=== PATIENT | female | born 1970 | race Caucasian/White ===

== ENCOUNTER 2018-01-22 04:52 | Emergency (ER) | payer BC, SELFPAY ==
[2018-01-22 04:53] VITALS: BP 142/94; PULSE 98; RESP 15; O2SAT 98; BMI 26.0
[2018-01-22] MEDS: Morphine 4 MG/ML Syringe IM (05:35)
[2018-01-22] MEDS: Ketorolac 60 MG/2 ML Vial IM (05:42)
[2018-01-22] MEDS: Orphenadrine 60 MG/2 ML Ampul IM (05:42)
--- NOTE | 2018-01-22 06:15 | RAD_ITS ---
STUDY: X-RAY - LUMBAR SPINE REASON FOR EXAM: Female, 47 years old. Low back pain for one year. TECHNIQUE: 3 view(s) of the lumbar spine were obtained. COMPARISON: None FINDINGS: Normal lumbar lordosis. There is no substantial scoliosis. There is a normal alignment of the vertebrae. Normal vertebral bodies and endplates. There are degenerative changes at L5-S1. The soft tissue structures are unremarkable. RAD/Lumbar Spine 2 or 3 Views IMPRESSION: Degenerative disc disease at L5-S1. Electronically Signed: Beth Butt MD at 6:39 EDT , Service support ,
--- NOTE | 2018-01-22 06:20 | ED.DCSUM_ITS ---
- ER Visit Summary Date of Service: 01/22/18 Chief Complaint: Low back pain History of Present Illness: The patient is a 47 F with bilateral low back pain. Patient has been dealing with this for some time, but it was worse this morning. The patient recently helped her mother move. She has seen a chiropractor. She has tried Advil and Epsom soaks. Nothing seems to help. Worse with moving and rolling. No bowel or bladder changes. No weakness or numbness. No abdominal pain or GI symptoms. No symptoms. Physical Examination: Afebrile and vital signs unremarkable. Patient alert and oriented. Appears uncomfortable but not toxic or in distress. Bilateral lower lumbar tenderness noted. Inspection normal. Spine nontender. Straight leg raise negative. Neurovascular intact distally both legs. Skin appears normal. Test Results: Lumbar x-rays pending. Emergency Department Course and Treatment: Patient treated with morphine, Toradol, and Norflex while awaiting results. X-rays show degenerative changes. Patient has modest improvement after pain medicine. Will attempt outpatient care and follow-up. She will be given a prescription for naproxen and Flexeril. Call for follow-up with primary care. Return for any new or worsening issues. Treatment Plan: As above Disposition: Discharge Impression: 1. Lumbar back pain This note was generated with [employer] dictation software. It may contain incorrect words, spelling, and punctuation that were not noted in review of the chart prior to signing ED Disposition - Plan for ED Patient: Chief Complaint: Back Referrals: Alex Bonilla [Primary Care Provider] -
--- NOTE | 2018-01-22 07:12 | ED.DEP ---
ED Disposition - Plan for ED Patient: Chief Complaint: Back Instructions: ED Spasm Back No Trauma Prescriptions: Naproxen [Naprosyn] 500 mg PO BID PRN #20 tab Cyclobenzaprine [Flexeril] 10 mg PO TID PRN #20 tab PRN Reason: Muscle Spasm Referrals: Alex Bonilla [Primary Care Provider] -
[2018-01-22 07:39] VITALS: BP 125/70; PULSE 74; RESP 16; O2SAT 97
== END 2018-01-22 07:47 | disposition home or self-care (01) ==
LOC: ED 06:05
PROVIDERS: Emergency Provider Emergency Medicine; Family Provider Family Medicine; PCP Family Medicine
DX: M54.5 Low back pain (principal); F17.200 Nicotine dependence, unspecified, uncomplicated
CPT/HCPCS: 72100; 99282

== ENCOUNTER 2018-02-14 07:49 | Day surgery (SDC) | payer BC, SELFPAY ==
[2018-02-14 08:08] VITALS: BP 122/82; PULSE 83; RESP 14; TEMP 36.5; O2SAT 97; BMI 26.2
--- NOTE | 2018-02-14 09:07 | PCM.OPRPT ---
Problem List (1) Personal history of colonic polyps Status: Acute (2) Irritable bowel syndrome with both constipation and diarrhea Status: Acute Report of Operation Date of Procedure: 02/14/18 Pre-Operative Diagnosis: Z86.010 history of colon polyps. K 58.2 irritable bowel syndrome with both constipation and diarrhea. Post-Operative Diagnosis: Same Surgery/Procedure Performed:: [id number] colonoscopy Type of Anesthesia:: MAC Anesthesiologist: Neal Rodríguez Description of Procedure: Patient was brought into the endoscopy suite. Placed in the left lateral decubitus position. Was given graded anesthesia. Colonoscope was inserted into the rectum. It was directed through the sigmoid colon, descending colon, transverse colon, ascending colon, to the cecum without difficulty. Operative findings: 1. Cecum: Normal appearance no mass lesions normal ileocecal valve. 2. Ascending colon: Normal appearance no mass lesions. 3. Transverse colon: Normal appearance no mass lesions. 4. Descending colon: Normal appearance no mass lesions. 5. Sigmoid colon: Normal appearance moderate amount of diverticular disease was identified no mass lesions. 6. Rectum: Normal appearance no mass lesions retroflexion showed some in internal hemorrhoids scope was withdrawn digital rectal exam was performed showing no masses within the anus. Patient will need to have another colonoscopy in 10 years. The mucosa throughout the colon looked entirely normal. There were no abnormalities seen anywhere. - Admit VTE Documentation VTE Present on Admission: No VTE Mechan Device Prophylaxis: None VTE Pharm Prophylaxis ordered?: No Reason prophylaxis not ordered:: Treatment Not Indicated
[2018-02-14 09:12] VITALS: BP 106/65; BP 122/82; PULSE 79; RESP 16; TEMP 36.9; O2SAT 97
[2018-02-14 09:15] VITALS: BP 107/64; BP 122/82; PULSE 76; RESP 16; O2SAT 97
[2018-02-14 09:20] VITALS: BP 112/69; BP 122/82; PULSE 71; RESP 16; O2SAT 97
[2018-02-14 09:27] VITALS: BP 115/69; BP 122/82; PULSE 75; RESP 16; TEMP 36.8; O2SAT 96
[2018-02-14 09:52] VITALS: BP 122/82
== END 2018-02-14 09:52 | disposition home or self-care (01) ==
LOC: EN 07:51 → AC 07:55
PROVIDERS: Family Provider Family Medicine; PCP Family Medicine; Visit Provider Surgery
PROC: 0DJD8ZZ Inspection of Lower Intestinal Tract, Via Natural or Artificial Opening Endoscopic (ICD-10-PCS; CPT 45378; principal; 2018-02-14 08:55)
DX: K58.2 Mixed irritable bowel syndrome (principal); Z86.010 Personal history of colon polyps; K64.8 Other hemorrhoids; M54.9 Dorsalgia, unspecified; G89.29 Other chronic pain; F17.200 Nicotine dependence, unspecified, uncomplicated
CPT/HCPCS: 45378; J7120

== ENCOUNTER 2018-11-30 10:02 | Emergency (ER) | payer BC, SELFPAY ==
[2018-11-30 10:04] VITALS: BP 156/88; PULSE 107; RESP 18; TEMP 37.1; O2SAT 96; BMI 27.2
--- NOTE | 2018-11-30 10:31 | CT_ITS ---
STUDY: CT ABDOMEN AND PELVIS WITH CONTRAST REASON FOR EXAM: Female, 48 years old. Pain. Bloody stool. RADIATION DOSAGE (If Supplied By Facility): CTDIvol = ( 15.71 ) mGy, DLP = ( 1002.49 ) mGycm TECHNIQUE: Transaxial images were obtained from the dome of the diaphragm to the symphysis pubis with oral contrast. Isovue 300 100ml IV/Oral was administered. Sagittal and coronal images were reconstructed. Individualized dose optimization techniques were used for this CT. COMPARISON: None. FINDINGS: The visualized lung bases are unremarkable. The visualized portions of the heart are within normal limits. There is hepatomegaly with diffuse hepatic enlargement. There is non-visualization of the gallbladder, which may be secondary to either contraction or a prior cholecystectomy. Normal spleen. Normal pancreas. Normal bilateral adrenal glands. Normal right kidney. There is 1.0 cm cyst of the left kidney. There is no hydronephrosis. Normal visualized stomach. Normal small intestine. Normal colon. The appendix is visualized and appears normal. There is mild atherosclerotic calcification of the abdominal aorta, without a demonstrated aneurysm. Normal inferior vena cava. Normal retroperitoneum. Normal urinary bladder. There is absence of the uterus consistent with a prior hysterectomy. There is no free fluid in the abdomen or pelvis. Normal abdominal wall. Normal osseous structures. CT/Abdomen/Pelvis WITH Contrast IMPRESSION: No dominant mass or obstruction Hepatomegaly. Electronically Signed: Ankush Roberson MD at 12:37 EDT , Service support ,
--- NOTE | 2018-11-30 10:32 | ED.VISSUMM ---
- ER Visit Summary Date of Service: 11/30/18 Chief Complaint: Blood per rectum History of Present Illness: The patient is a 48 F who presents for episode of bloody stool this morning. Patient states that she had a small amount of mucus and bright red blood in the toilet when she used the bathroom. There was no actual stool. Patient's last bowel movement was 3 days ago, and she normally has a bowel movement daily. She states she has had a lot of gurgling in her abdomen over the last few days. She is also having low back pressure. She states the low back pressure is not new. She denies any fever, nausea, vomiting, overt abdominal pain, or urinary symptoms. She had a colonoscopy 1 year ago and states she has a kink in her colon. Patient is not on any blood thinners. History of cholecystectomy and hysterectomy. She has rheumatoid arthritis. Physical Examination: Vital signs: afebrile, hemodynamically stable, no hypoxia on room air General: well nourished, well developed, in no distress Skin: warm, dry, no rash, no pallor HEENT: normocephalic and atraumatic; PERRL, EOMI, moist mucous membranes Cardiovascular: Tachycardic rate and rhythm without murmurs, no peripheral edema, 2+ pulses all distal extremities Respiratory: No increased work of breathing, lungs are clear to auscultation bilaterally, no rales, rhonchi or wheezing Abdominal: Abdomen is soft, mildly distended, diffuse mild tenderness with normoactive bowel sounds, no guarding or rebound, no masses, rectal exam shows no maria elena blood on stool, no masses appreciated, no anal fissures or bleeding hemorrhoids noted MSK: Moves all extremities, no deformities, normal strength Neuro: Awake and alert, oriented ?4. No facial droop, sensation and motor function intact and symmetric Test Results: Clinical Impression(s) from Imaging Studies Abdomen/Pelvis CT 11/30/18 10:31 IMPRESSION: No dominant mass or obstruction Hepatomegaly. Electronically Signed: Ankush Roberson MD at 12:37 EDT , Service support , Abnormal Lab Results 11/30/18 11/30/18 11/30/18 10:30 10:30 11:45 WBC 12.8 H RBC 5.05 Hgb 14.8 Hct 46.8 MCV 92.7 MCH 29.3 MCHC 31.6 L RDW 14.2 RDW Differential 47.6 H Plt Count 203 MPV 10.5 Immature Gran % (Auto) 0.200 Neut % (Auto) 54.8 Lymph % (Auto) 36.5 [place] % (Auto) 6.4 Eos % (Auto) 1.9 Baso % (Auto) 0.2 Absolute Neuts (auto) 7.0 Absolute Lymphs (auto) 4.66 H Total Counted Not Reportable Sodium 142 Potassium 3.7 Chloride 109 H Carbon Dioxide 27.0 Anion Gap 6 BUN 15 Creatinine 0.56 Estim Creat Clear Calc 119.47 Est GFR (MDRD) Af Amer 148 Est GFR (MDRD) Non-Af 122 BUN/Creatinine Ratio 26.7 H Glucose 93 Calcium 8.6 Total Bilirubin 0.20 AST 19 ALT 29 Alkaline Phosphatase 152 H Total Protein 7.0 Albumin 3.5 Globulin 3.5 Albumin/Globulin Ratio 1.0 Lipase 145 Urine Color Yellow Urine Clarity Clear Urine pH 6.0 Ur Specific [place] 1.015 Urine Protein Negative Urine Glucose (UA) Normal Urine Ketones Negative Urine Occult Blood Negative Urine Nitrite Negative Urine Bilirubin Negative Urine Urobilinogen Normal Ur Leukocyte Esterase Negative Urine RBC 0-5 SEEN Urine WBC 0 SEEN Ur Squamous Epith Cells 0 SEEN Urine Bacteria RARE Urine Mucus RARE Medications Given Discontinued Medications Sodium Chloride () 1,000 mls @ 1,000 mls/hr IV .Q1H ONE Stop: 11/30/18 11:30 Last Admin: 11/30/18 10:42 Dose: 1,000 mls/hr Ondansetron HCl (Zofran) 4 mg IV X1 ONE Stop: 11/30/18 10:32 Last Admin: 11/30/18 10:42 Dose: 4 mg Emergency Department Course and Treatment: Patient presents for an episode of mucus and blood from her bottom after having no bowel movement for a few days and feeling bloated. Patient does have history of abdominal surgeries, and bowel obstruction is on the differential. Patient was given IV fluids and Zofran. CT the abdomen and pelvis was performed and showed no evidence of obstruction or other acute process.. Patient's labs were remarkable only for mild leukocytosis of 12.8 without neutrophil predominance. Patient's labs were consistent with dehydration, and she did receive IV fluids. Patient was feeling well on reevaluation and had no further episodes of the blood from below. Patient is to follow-up with her doctor who has performed her colonoscopies in the past if she continues to have bleeding. We discussed return precautions. We also discussed a bowel regimen to help her with constipation. Patient was discharged home well-appearing and in no distress. Treatment Plan: [] Disposition: [] Impression: Bright red blood per rectum, constipation, mild dehydration This note was generated with [employer] dictation software. It may contain incorrect words, spelling, and punctuation that were not noted in review of the chart prior to signing ED Disposition - Plan for ED Patient: Disposition: Home or Assisted Living Instructions: ED Hematochezia Stable, ED Constipation Referrals: Mik Hung MD [Primary Care Provider] - Additional Instructions: If you continue to have bleeding, please follow-up with your doctor that performs her colonoscopies. If at any time you are having heavy bleeding from your bottom, severe abdominal or back pain, dizziness or lightheadedness, or you have any concerns, please return immediately to the emergency department for another evaluation. Please drink plenty of water to help prevent dehydration and also to help with constipation. You may add MiraLAX to your bowel regimen as well. If you have any worsening of your condition or any new concerning symptoms, please return immediately to the emergency department for another evaluation.
[2018-11-30] MEDS: Ondansetron 4 MG/2 ML Vial IV (10:42)
[2018-11-30] MEDS: 0.9% Normal Saline 1,000 ML 1000 ML IV (10:42)
[2018-11-30 10:49] LABS: Absolute Lymphocyte Count 4.66 X10^3/ul (0.83-4.51); Basophil# 0.02 X10^3/uL; Basophil% 0.2 % (0-1); Eosinophil# 0.24 X10^3/uL; Eosinophils% 1.9 % (0-5); Hematocrit 46.8 % (37-47); Hemoglobin 14.8 g/dl (12.0-15.0); Lymphocyte # 4.66 X10^3/ul (4.0); Lymphocyte % 36.5 % (19-41); Mean Corp Hgb Conc 31.6 g/gl (32-36); Mean Corpuscular Hgb 29.3 pg (27.0-32.0); Mean Corpuscular Volume 92.7 fL (81-99); Mean Platelet Vol. 10.5 fl (6.2-12.0); Monocyte# 0.82 X10^3/uL; Monocyte% 6.4 % (0-10); Neutrophil # 7.02 X10^3/uL (2.7-7.7); Neutrophil % 54.8 % (47-70); Platelet Count 203 K/mm3 (150-450); RBC Distribution Width CV 14.2 % (11.6-14.6); RBC Distribution Width SD 47.6 fl (35.1-43.9); Red Blood Count 5.05 M/mm3 (4.2-5.4); White Blood Count 12.8 K/mm3 (4.4-11.0)
[2018-11-30 10:53] LABS: POSITIVE COUNT NO; POSITIVE DIFFERENTIAL NO; POSITIVE MORPHOLOGY NO
[2018-11-30 11:00] LABS: AST(SGOT) 19 U/L (15-37); Alanine Aminotransfer ALT/SGPT 29 U/L (13-56); Albumin, Serum 3.5 g/dL (3.2-5.0); Alkaline Phosphatase 152 U/L (45-117); Anion Gap 6 (5-15); BUN 15 mg/dL (7-18); BUN/Creat Ratio 26.7 RATIO (10-20); Calcium,Total 8.6 mg/dL (8.5-10.1); Chloride 109 mmol/L (98-107); Creatinine, Serum 0.56 mg/dL (0.55-1.02); EST Glomerular Filtration Rate 122 mL/min (>60); Est Glom Filt Rate - Afr Amer 148 mL/min (>60); Estimated Creatinine Clearance 119.47 ml/min; Globulin 3.5 g/dL (2.2-4.2); Glucose 93 mg/dL (74-106); Lipase 145 U/L (73-393); Potassium 3.7 mmol/L (3.5-5.1); Sodium Level 142 mmol/L (136-145)
[2018-11-30 11:50] LABS: Squamous Epithelial Cells - UA 0 SEEN /hpf (5-10); White Blood Cells 0 SEEN /hpf (0-5)
[2018-11-30 11:55] LABS: Color, Urine Yellow (Yellow); Glucose, Dipstick Normal (Normal); Ketone-Dipstick Negative (Negative); Leukocyte Esterase-Dipstick Negative /ul (Negative); Nitrite-Dipstick Negative (Negative); Occult Blood-Urine Negative /ul (Negative); Protein-Dipstick Negative (Negative); Specific Gravity, Urine 1.015 (1.002-1.030); Urine Bilirubin Dipstick Negative (Negative); Urine Clarity Clear (Clear); Urine Urobilinogen Normal (Normal)
[2018-11-30 12:01] LABS: Red Blood Cells-Urine 0-5 SEEN /hpf (0-5)
[2018-11-30 12:02] LABS: Bacteria RARE /hpf (None Seen); Mucous, Urine RARE /hpf (<or=2+)
[2018-11-30 12:58] VITALS: BP 121/84; PULSE 78; RESP 18; O2SAT 94
== END 2018-11-30 13:10 | disposition home or self-care (01) ==
PROVIDERS: Emergency Provider Emergency Medicine; Family Provider Family Medicine; PCP Family Medicine
DX: K92.1 Melena (principal); K59.00 Constipation, unspecified; E86.0 Dehydration; M06.9 Rheumatoid arthritis, unspecified; Z90.710 Acquired absence of both cervix and uterus; Z90.49 Acquired absence of other specified parts of digestive tract; Z72.0 Tobacco use
CPT/HCPCS: 74177; 80053; 81001; 82274; 83690; 85025; 96361; 96374; 99283; J7030; Q9967; A4216; J2405

== ENCOUNTER 2019-03-05 09:41 | Observation (INO) | payer BC, SELFPAY ==
[2019-03-05] VITALS (15 sets, daily range): BP systolic 111–145; BP diastolic 60–91; PULSE 74–124; RESP 16–18; TEMP 36.4–37.2; O2SAT 94–98; BMI 26.2
--- NOTE | 2019-03-05 09:54 | RAD_ITS ---
STUDY: X-RAY CHEST REASON FOR EXAM: Female, 48 years old. Right facial numbness. TECHNIQUE: Single AP portable view of the chest. COMPARISON: None. FINDINGS: EKG electrodes are seen. Minimal increased linear markings at the lung bases suggestive of a linear bibasilar atelectasis. There is no demonstrated pleural abnormality. Normal size heart. Normal mediastinum and rose. Normal visualized pulmonary arteries. Normal visualized aortic arch and descending thoracic aorta. Normal visualized thoracic spine. Normal visualized ribs, clavicles, and shoulders. There is no demonstrated abnormality of the visualized soft tissue structures of the upper abdomen. RAD/Chest 1 View IMPRESSION: Minimal increased linear markings at the lung bases suggestive of linear atelectasis. Electronically Signed: Kings Smith, at 11:12 EDT , Service support ,
--- NOTE | 2019-03-05 09:54 | CT_ITS ---
STUDY: CTA OF THE BRAIN REASON FOR EXAM: Female, 48 years old. Right facial paresthesias. RADIATION DOSAGE (If Supplied By Facility): CTDIvol = ( 26.57 ) mGy, DLP = ( 1436.88 ) mGycm TECHNIQUE: CT angiography was performed with a multi-detector CT scanner. Data acquisition was obtained from the skull base through the vertex following intravenous administration of 100ml IV Isovue 370. MIP images were reconstructed from the axial data set. Post-processing of the angiographic images was performed, with multiplanar reformation and 3D reconstruction. Individualized dose optimization techniques were used for this CT. COMPARISON: None. FINDINGS: Normal bilateral petrous carotid arteries. Normal right cavernous carotid artery with a normal supraclinoid bifurcation. Normal left cavernous carotid artery with a normal supraclinoid bifurcation. Normal right A1 segments of the anterior cerebral artery. Normal left A1 segments of the anterior cerebral artery. Normal intact anterior communicating artery (ACOM). Normal bilateral A2 segments of the anterior cerebral arteries. Normal right M1 and M2 segments of the middle cerebral arteries, with a normal M1 bifurcation. Normal left M1 and M2 segments of the middle cerebral arteries, with a normal M1 bifurcation. Normal right posterior communicating artery (PCOM). Normal left posterior communicating artery (PCOM). Normal bilateral vertebral arteries. Normal basilar artery with a normal basilar bifurcation. The visualized bilateral superior cerebellar (SCA) arteries are normal. Normal bilateral P1, P2 and visualized P3 segments of the posterior cerebral arteries. There is no demonstrated aneurysm of the [place]. There is no demonstrated abnormality of the visualized brain. CT/CTA Head W/WO Contrast IMPRESSION: Normal [place] without a demonstrated aneurysm or hemodynamically significant stenosis. Electronically Signed: Kings mSith, at 11:08 EDT , Service support ,
--- NOTE | 2019-03-05 09:54 | CT_ITS ---
STUDY: CTA NECK WITH CONTRAST REASON FOR EXAM: Female, 48 years old. Right facial paresthesias. RADIATION DOSAGE (If Supplied By Facility): CTDIvol = ( 26.57 ) mGy, DLP = ( 1436.88 ) mGycm TECHNIQUE: CT angiography with multi-detector data acquisition was performed from the aortic arch to the skull base following intravenous administration of 100ml IV Isovue 370. MIP images were reconstructed from the axial data set. Post-processing of the angiographic images was performed, with multiplanar reformation and 3D reconstruction. Individualized dose optimization techniques were used for this CT. COMPARISON: None. FINDINGS: AORTIC ARCH: Normal visualized aortic arch. Normal origins of the brachiocephalic, left common carotid, and left subclavian arteries. RIGHT CAROTID ARTERIES: Normal right common carotid artery (CCA). Normal right common carotid bulb. Normal origin of the right internal carotid (ICA) artery without a hemodynamically significant stenosis. Normal visualized cervical portion of the right internal carotid artery. Normal origin of the right external carotid artery (ECA). LEFT CAROTID ARTERIES: Normal left common carotid artery (CCA). Normal left common carotid bulb. Normal origin of the left internal carotid (ICA) artery without a hemodynamically significant stenosis. Normal visualized cervical portion of the left internal carotid artery. Normal origin of the left external carotid artery (ECA). VERTEBRAL ARTERIES: There is enhancement within the bilateral vertebral arteries with a small right vertebral artery, and a dominant left vertebral artery. CT/CTA Neck W/WO Contrast IMPRESSION: Normal bilateral cervical carotid and vertebral arteries. Electronically Signed: Kings Smith, at 11:10 EDT , Service support ,
--- NOTE | 2019-03-05 09:54 | EKG12_ITS ---
Test Reason : OTHER PAIN Blood Pressure : / mmHG Vent. Rate : 107 BPM Atrial Rate : 107 BPM P-R Int : 162 ms QRS Dur : 072 ms QT Int : 340 ms P-R-T Axes : 056 006 021 degrees QTc Int : 453 ms Sinus tachycardia Possible Left atrial enlargement Borderline ECG Confirmed by ANNA GOVEA ([id number]), story editor BRANDY ZAYAS ([id number]) on 03/11/2019 10:26:16 AM Referred By: Nile Calles Confirmed By:ANNA GOVEA
[2019-03-05 10:18] LABS: Absolute Lymphocyte Count 4.22 X10^3/ul (0.83-4.51); Absolute Neutrophil Count 9.3 X10^3/uL (2.0-7.7); Basophil# 0.03 X10^3/uL; Basophil% 0.2 % (0-1); Eosinophil# 0.17 X10^3/uL; Eosinophils% 1.1 % (0-5); Hematocrit 47.6 % (37-47); Hemoglobin 15.8 g/dl (12.0-15.0); Lymphocyte # 4.22 X10^3/ul (4.0); Lymphocyte % 28.5 % (19-41); Mean Corp Hgb Conc 33.2 g/gl (32-36); Mean Corpuscular Hgb 30.4 pg (27.0-32.0); Mean Corpuscular Volume 91.5 fL (81-99); Mean Platelet Vol. 10.1 fl (6.2-12.0); Monocyte% 7.4 % (0-10); Neutrophil # 9.28 X10^3/uL (2.7-7.7); Neutrophil % 62.6 % (47-70); Platelet Count 203 K/mm3 (150-450); RBC Distribution Width CV 13.9 % (11.6-14.6); RBC Distribution Width SD 46.4 fl (35.1-43.9); White Blood Count 14.8 K/mm3 (4.4-11.0)
[2019-03-05 10:22] LABS: POSITIVE COUNT NO; POSITIVE DIFFERENTIAL NO; POSITIVE MORPHOLOGY NO
[2019-03-05] MEDS: 0.9% Normal Saline 1,000 ML 100 ML IV ×2 (10:25→13:05)
[2019-03-05 10:34] LABS: Anion Gap 6 (5-15); BUN 14 mg/dL (7-18); BUN/Creat Ratio 22.5 RATIO (10-20); Calcium,Total 8.8 mg/dL (8.5-10.1); Chloride 106 mmol/L (98-107); Creatinine, Serum 0.62 mg/dL (0.55-1.02); EST Glomerular Filtration Rate 108 mL/min (>60); Est Glom Filt Rate - Afr Amer 131 mL/min (>60); Estimated Creatinine Clearance 107.91 ml/min; Glucose 101 mg/dL (74-106); Partial Thromboplast Time 33.9 Seconds (24.1-36.2); Potassium 3.8 mmol/L (3.5-5.1); Prothrombin Time (Protime)PT. 12.9 SECONDS (11.7-14.9); Sodium Level 139 mmol/L (136-145)
--- NOTE | 2019-03-05 10:44 | ED.VISSUMM ---
- ER Visit Summary Date of Service: 03/05/19 Chief Complaint: [Numbness to the right side of face] History of Present Illness: The patient is a 48 F [resents to the emergency department with symptoms that started about an hour ago. 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 She noticed about an hour ago that the right side of her face became numb. She denies any vision changes or difficulty speaking. She denies any weakness in the extremities. She denies headache. She denies head injury. Patient denies recent illness. She denies any chest pain currently although she is had some intermittent discomfort over the last several days. Patient also complains of exertional dyspnea that is been ongoing for some time. Patient states that she has a brother in his 40s and he has had 3 strokes. Patient has history of high cholesterol is a smoker. Patient is on hormone replacement as she is had prior hysterectomy.] Physical Examination: [HEENT-PERRLA, EOMI. Cranial nerves II through XII grossly intact. TMs clear. Mucous membranes moist. No adenopathy. Cardiovascular-regular rate and rhythm without murmur or ectopy Lungs-clear to auscultation, chest wall stable without crepitus or subcu emphysema Abdomen-normoactive bowel sounds, soft, nontender, no rebound or rigidity, no peritoneal signs. Neuro [id number] and heel pulido testing within normal limits, negative Romberg, negative , Fundi benign. NIH stroke scale was a 1 given for paresthesias to the right side of the face. Extremities-intact ?4, normal range of motion, normal pulses, atraumatic] Test Results: [EKG obtained arrival shows sinus tachycardia with a ventricular rate of 107 bpm. CBC with additional count 14.8, hemoglobin 15.8, hematocrit 48, platelets 203. Troponin was less than 0.015] CTA of the brain and neck were normal. Chest x-ray was normal. Emergency Department Course and Treatment: [Patient case was discussed with neurology and at this point will recommend admission for further work-up of her paresthesias to the right side of her face.] Treatment Plan: [Admit] Disposition: [Admit] Impression: [Paresthesias right face-rule out stroke versus TIA versus other etiology] This note was generated with [employer] software. It may contain incorrect words, spelling, and punctuation that were not noted in review of the chart prior to signing ED Disposition - Plan for ED Patient: Referrals: Mik Hung MD [Primary Care Provider] -
[2019-03-05 11:01] LABS: Bedside Glucose 78 mg/dL (70-110)
--- NOTE | 2019-03-05 11:48 | NURSING ---
DR ALMIEDA FOR DR BOBBY
--- NOTE | 2019-03-05 11:55 | NURSING ---
PCU OBS ASHELFAH PARAESTHESIAS RT FACE, R/O CVA
--- NOTE | 2019-03-05 12:43 | ECHOD_ITS ---
Reason For Study: TIA/CVA Procedure This was a 2D Doppler, Color Flow transthoracic echocardiogram. Exam performed portable in patient room. Left Ventricle Normal size and thickness. The estimated ejection fraction is 65 %. Normal diastology for age. No regional wall motion abnormalities noted. Right Ventricle Normal size and thickness. Normal systolic function. Atria Normal left atrium. Normal right atrium. Normal atrial septum. Bubble contrast study negative for right to left interatrial shunt. Mitral Valve The mitral valve is structurally normal. No prolapse or stenosis seen. Trivial mitral valve insufficiency. Tricuspid Valve Normal tricuspid valve. Trivial tricuspid valve insufficiency. Right ventricular systolic pressure estimated to be 22 mmHg. Aortic Valve Normal aortic valve. Trisinus/trileaflet aortic valve. Pulmonic Valve Normal pulmonic valve. Trivial pulmonic valve insufficiency. Great Vessels Normal aortic root. Normal arch. Normal inferior vena cava. Inferior vena cava collapse with sniff. Pericardium/Pleural No pericardial effusion. Medication Performed a rapid injection of agitated mix of 9 cc saline and 1cc air to assess for atrial septal defect. MMode/2D Measurements & Calculations LVIDd: 4.5 cm IVSd: 0.92 cm Ao root diam: 3.4 cm LVIDs: 3.3 cm LVPWd: 0.88 cm RVDd: 3.2 cm FS: 27.7 % LAV(MOD-bp): 47.3 ml LA A4 area: 16.5 cm2 LA dimension(2D): 3.2 cm LAV(MOD-bp) Indexed: 25.3 ml/m2 LAV(MOD-sp2): 46.9 ml LAV(MOD-sp4): 46.8 ml RA A4 area: 14.4 cm2 Time Measurements MV dec time: 0.25 sec Doppler Measurements & Calculations MV E max kunal: 64.1 cm/sec Lat Peak E' Kunal: 7.7 cm/sec Med Peak E' Kunal: 8.8 cm/sec MV A max kunal: 60.5 cm/sec E/E' lat: 8.3 E/E' med: 7.3 MV E/A: 1.1 Ao V2 max: 92.2 cm/sec LV V1 max: 78.1 cm/sec PA V2 max: 92.4 cm/sec Ao max P.4 mmHg LV V1 max P.4 mmHg PI dec slope: 233.1 cm/sec2 Interpretation Summary The estimated ejection fraction is 65 %. Normal diastology for age. Bubble contrast study negative for right to left interatrial shunt. Trivial mitral valve insufficiency. Trivial tricuspid valve insufficiency. Right ventricular systolic pressure estimated to be 22 mmHg. There is no comparison study available. Ordering Physician: Nile Calles Referring Physician: NO PCP Performed By: Lidya Lew, MURIEL, RVT
--- NOTE | 2019-03-05 12:43 | MRI_ITS ---
STUDY: MRI BRAIN WITHOUT CONTRAST REASON FOR EXAM: Female, 48 years old. Right facial numbness, tingling possible stroke TECHNIQUE: Standardized multiplanar fat and water weighted pulse sequences were obtained. COMPARISON: None. FINDINGS: Normal size of the ventricles and extra-axial spaces for the patient's age. Normal white matter tracts of the supratentorial brain. The diffusion-weighted sequence is normal. Normal bilateral basal ganglia. Normal thalami. There is no extra-axial fluid accumulation. Normal flow voids within the major intracranial circulation suggesting patency by spin echo criteria. Normal sella turcica, pituitary gland, infundibular stalk, optic chiasm and hypothalamus. Normal tectal plate and pineal gland. Normal midbrain, annetta and medulla. Normal cerebellum. Normal basal cisterns. Normal bilateral temporal bones. Normal bilateral internal auditory canals. No demonstrated orbital abnormality, within the constraints of a routine brain study. Normal visualized paranasal sinuses. Normal calvarium and skull base. Normal visualized soft tissue structures. Normal visualized upper cervical spine. MRI/Brain without Contrast IMPRESSION: Normal unenhanced MRI of the brain. No MRI evidence for acute stroke. The diffusion weighted sequence is normal. Electronically Signed: Wilmer Lopez, at 22:01 EDT Tel , Service support ,
--- NOTE | 2019-03-05 12:55 | PCM.HP.STD ---
Problem List (1) Hemorrhoids Status: Chronic (2) Rheumatoid arthritis Status: Chronic (3) Tobacco abuse Status: Chronic (4) Chronic back pain Status: Chronic History of Present Illness Date of Admission: 03/05/19 Chief Complaint: Right face numbness and tingling. The patient is a 48 year old F with past medical history as mentioned above presented to the emergency room because of right facial numbness and tingling. 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 Shortly after, she started having numbness and tingling on the right side of her face, involving the right cheek and mandible, associated with mild dizziness, continued up to this time, no aggravating or relieving factors and no associated symptoms. She denied associated blurred vision or any changes in her vision, denied slurred speech, focal arm or leg weakness. She denied headache. She denied chest pain or shortness of breath. She mentioned that she had a brother who is in his 40s and he had 3 strokes. She has history of hyperlipidemia and her PCP has been managing it with diet control but she is not on statins. She has history of hysterectomy and she has been on hormonal replacement. In the emergency department, her vital signs were stable. Her NIH stroke scale was 1. She has no other focal deficit on physical examination. Routine blood work was remarkable for leukocytosis which is chronic, otherwise normal. EKG revealed normal sinus rhythm, normal MO interval, normal QRS, no acute ischemic changes. Troponin was negative. Chest x-ray showed no acute findings. CTA of the head and neck showed no acute infarction or hemorrhage, no evidence of hemodynamically significant vascular disease or stenosis. She is being admitted for right facial paresthesia/probable TIA for evaluation. Past Medical History Past Medical History (Chronic Problems): Chronic Problems (Last Updated 03/05/19 @ 12:54 by Nile Calles MD) Personal history of colonic polyps (Chronic) Hemorrhoids (Chronic) Acid reflux (Chronic) Heart murmur (Chronic) Rheumatoid arthritis (Chronic) Tobacco abuse (Chronic) Chronic back pain (Chronic) Medical History: Medical History (Last Updated 03/05/19 @ 12:54 by Nile Calles MD) Hemorrhoids (Chronic) K64.9 Acid reflux (Chronic) K21.9 Heart murmur (Chronic) R01.1 Rheumatoid arthritis (Chronic) M06.9 Tobacco abuse (Chronic) Z72.0 Chronic back pain (Chronic) M54.9, G89.29 Allergies No Known Allergies Allergy (Verified 03/05/19 09:43) Home Medications: Ambulatory Orders Medication Instructions Recorded Estradiol [Estrace] 1 mg PO DAILY 01/22/18 Lactobacillus acidophilus capsule 10 mg PO QDAY 02/08/18 multivitamin tablet 1 tab PO QDAY 02/08/18 omeprazole 20 mg capsule,delayed 20 mg PO QDAY 02/08/18 release Cholecalciferol (Vitamin D3) 1,200 units PO DAILY 11/30/18 [Vitamin D] DiphenhydrAMINE [Benadryl] 25 mg PO QHS 03/05/19 Surgical History: cholecystectomy, hysterectomy, tonsillectomy Psychiatric History: No pertinent psych hx 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 history Lives: Spouse/ Significant Other Smoking Status: Current every day smoker Tobacco Use: Cigarettes Alcohol: Rare Drugs: None - *Family History Maternal Family History: Family History (Last Reviewed 02/08/18 @ 09:41 by Mickey Prather MD) Father Arthritis Diabetes Heart disease Hypertension Cancer Thyroid disorder Thyroid cancer CAD (coronary artery disease) Mother Arthritis Diabetes Brother Hypertension CVA (cerebral vascular accident) History Items: - Sibling Family History: Family History (Last Reviewed 02/08/18 @ 09:41 by Mickey Prather MD) Father Arthritis Diabetes Heart disease Hypertension Cancer Thyroid disorder Thyroid cancer CAD (coronary artery disease) Mother Arthritis Diabetes Brother Hypertension CVA (cerebral vascular accident) History Items: Stroke Review of Systems Constitutional: Denies: Anorexia, Chills, Fever, Weakness Eyes: Denies: Blurred vision, Double vision, Drainage, Redness HEENT: Denies: Difficulty Hearing, Ear Pain, Eye Pain, Nasal Congestion, Sore Throat Cardiovascular: Reports: Light Headedness. Denies: Chest Pain, Chest Pressure, Chest Tightness, Heaviness, Palpitations, Paroxysmal Noc. Dyspnea, Syncope Respiratory: Denies: Cough, Hemoptysis, Pleuritic Pain, Shortness of Breath, Sputum production, Wheezing Gastrointestinal: Denies: Abdominal Pain, Constipation, Diarrhea, Nausea, Vomiting Genitourinary: Denies: Dysuria, Frequency, Hematuria Musculoskeletal: Denies: Arm Pain, Back Pain, Foot Pain Skin: Denies: Dryness, Rash Neurological: Reports: Numbness, Tingling. Denies: Balance problems, Blurred vision, Double vision, Change in Speech, Slurred speech, Confusion, Focal weakness, Headaches, Tremor, Seizures Psychiatric: Denies: Anxiety, Depression Endocrine: Denies: Change in Body Habitus, Polyuria VTE Information - Inpt Only VTE Present on Admission: No VTE Mechan Device Prophylaxis: None VTE Pharm Prophylaxis ordered?: No - Physical Exam General: Alert, Oriented x3, Cooperative, No apparent distress HEENT: Atraumatic, PERRLA, EOMI, Normocephalic Oral: Moist Mucosa, No Gingival or Mucosal Lesions/ Ulcerations Neck: Supple, No JVD, Negative Carotid Bruits, Trachea Midline, Thyroid Normal Size and Texture Lungs: Clear to auscultation, Normal air movement, No rhonchi, No wheeze, No rales Cardiovascular: Regular rate, Regular Rhythm, Normal S1, Normal S2, PMI Normal Abdomen: Bowel Sounds Present, Soft, Non Tender, Non-Distended, No Hepato-splenomegaly Extremities: No clubbing, No cyanosis, No edema Skin: No rashes, No breakdown Lymphatic: No Cervical, Supraclavicular, or Inguinal Adenopathy Neurological: Cranial nerves II-XII grossly intact, Motor Exam 5/5 strength throughout Psych/Mental Status: Normal Affect, Appropriate, Alert and oriented to time, place, person, mood and affect Vital Signs Temp Pulse Resp BP Pulse Ox 98.9 F 88 18 116/67 98 03/05/19 09:41 03/05/19 12:34 03/05/19 12:34 03/05/19 12:34 03/05/19 12:34 Oxygen Delivery Method Room Air Weight: 167 lb Body Mass Index (BMI) 26.2 Finger Stick Blood Glucose 78 Laboratory Tests Past 24 Hrs 03/05/19 03/05/19 03/05/19 10:04 10:04 10:04 WBC 14.8 H RBC 5.20 Hgb 15.8 H Hct 47.6 H MCV 91.5 MCH 30.4 MCHC 33.2 RDW 13.9 RDW Differential 46.4 H Plt Count 203 MPV 10.1 Immature Gran % (Auto) 0.200 Neut % (Auto) 62.6 Lymph % (Auto) 28.5 [place] % (Auto) 7.4 Eos % (Auto) 1.1 Baso % (Auto) 0.2 Absolute Neuts (auto) 9.3 H Absolute Lymphs (auto) 4.22 Total Counted Not Reportable PT 12.9 INR 1.0 APTT 33.9 Sodium 139 Potassium 3.8 Chloride 106 Carbon Dioxide 27.0 Anion Gap 6 BUN 14 Creatinine 0.62 Estim Creat Clear Calc 107.91 Est GFR (MDRD) Af Amer 131 Est GFR (MDRD) Non-Af 108 BUN/Creatinine Ratio 22.5 H Glucose 101 Calcium 8.8 Troponin I < 0.015 POC Glucose 03/05/19 10:53 POC Glucose 78 Clinical Impression(s) from Imaging Studies Chest X-Ray 03/05/19 09:54 IMPRESSION: Minimal increased linear markings at the lung bases suggestive of linear atelectasis. Electronically Signed: Kings Smith, at 11:12 EDT , Service support , Head CTA 03/05/19 09:54 IMPRESSION: Normal [place] without a demonstrated aneurysm or hemodynamically significant stenosis. Electronically Signed: Kings Smith, at 11:08 EDT , Service support , Neck CTA 03/05/19 09:54 IMPRESSION: Normal bilateral cervical carotid and vertebral arteries. Electronically Signed: Kings Smith, at 11:10 EDT , Service support , Assessment/Plan This is a 48 years old female patient presented to the emergency room because of right facial paresthesia and she is being admitted for evaluation for probable TIA. #1 right facial paresthesia/probable TIA: She has no other focal deficit apart from right facial paresthesia. Risk factors are history of smoking, hyperlipidemia not on statins and history of stroke in the family, she has a brother who is in his 40s and he had 3 strokes. She is not a candidate for TPA. Her vital signs are stable, blood pressure under control. CTA of the head and neck were unremarkable. EKG revealed normal sinus rhythm, no acute ischemic changes or cardiac arrhythmias. Plan: Admit to PCU for observation, cardiac monitoring, NIH stroke scale, MRI brain, 2D echocardiogram, fasting lipid profile, start baby aspirin and Lipitor, PT OT evaluation and treatment. #2 hyperlipidemia: Not on treatment, it has been managed with diet controlled by PCP. Plan to do lipid profile tomorrow morning, start Lipitor as above. #3 rheumatoid arthritis: Stable, no complaints, she has been not on any treatment for it. #4 GERD: Continue PPI. #5 DVT prophylaxis: Low risk patient, no prophylaxis indicated. This note was generated with [employer] dictation software. It may contain incorrect words, spelling, and punctuation that were not noted in checking the note before signing. Code Visit OBSV E&M: 65588 Initial observation care L3
--- NOTE | 2019-03-05 22:21 | NURSING ---
pt off floor for testing, unable to complete NIH until pt returned.
[2019-03-05] MEDS: MELATONIN 10 MG TABLET PO (22:23)
[2019-03-05] MEDS: Atorvastatin Calcium 80 MG Tablet PO (22:23)
[2019-03-06 01:54] VITALS: BP 103/61; PULSE 74; RESP 16; TEMP 36.5; O2SAT 94
[2019-03-06 03:00] VITALS: PULSE 74
[2019-03-06 06:00] VITALS: BP 118/58; PULSE 74; RESP 16; TEMP 36.5; O2SAT 94
[2019-03-06 06:13] LABS: Absolute Lymphocyte Count 3.26 X10^3/ul (0.83-4.51); Absolute Neutrophil Count 4.7 X10^3/uL (2.0-7.7); Basophil# 0.02 X10^3/uL; Basophil% 0.2 % (0-1); Eosinophil# 0.27 X10^3/uL; Hemoglobin 15.4 g/dl (12.0-15.0); Lymphocyte # 3.26 X10^3/ul (4.0); Lymphocyte % 36.4 % (19-41); Mean Corp Hgb Conc 32.8 g/gl (32-36); Mean Corpuscular Hgb 29.6 pg (27.0-32.0); Mean Corpuscular Volume 90.4 fL (81-99); Mean Platelet Vol. 10.2 fl (6.2-12.0); Monocyte# 0.68 X10^3/uL; Monocyte% 7.6 % (0-10); Neutrophil # 4.72 X10^3/uL (2.7-7.7); Neutrophil % 52.7 % (47-70); Platelet Count 192 K/mm3 (150-450); RBC Distribution Width CV 14.2 % (11.6-14.6); RBC Distribution Width SD 46.7 fl (35.1-43.9)
[2019-03-06 06:16] LABS: POSITIVE COUNT NO; POSITIVE DIFFERENTIAL NO; POSITIVE MORPHOLOGY NO
[2019-03-06 06:27] VITALS: PULSE 72
[2019-03-06 06:43] LABS: Cholesterol 182 mg/dL (200); High Density Lipoprotein 32 mg/dL; Triglycerides 200 mg/dL; Very Low Density Lipoprotein 40 mg/dL (5-40)
[2019-03-06 06:58] VITALS: O2SAT 95
[2019-03-06 07:54] VITALS: BMI 26.2
--- NOTE | 2019-03-06 07:57 | DCINST_ITS ---
You will use the following diet at home:: Regular Your food should be the consistency of: Regular Discharge Activity: Return to Normal Activity Weight Bearing Status: Full weight bearing Call your doctor if you observe: Fever of 101 or Higher, Shortness of breath, Dizziness, Fainting spells, Chest pain, Increased palpitations (irregular heartbeat), Uncontrolled pain Allergies/Adverse Reactions: Allergies No Known Allergies Allergy (Verified 03/05/19 09:43) Medications to take at Discharge Estradiol [Estrace] 1 mg PO DAILY 01/22/18 Lactobacillus acidophilus capsule 10 mg PO QDAY 02/08/18 multivitamin tablet 1 tab PO QDAY 02/08/18 omeprazole 20 mg capsule,delayed release 20 mg PO QDAY 02/08/18 Cholecalciferol (Vitamin D3) [Vitamin D3] 1,200 units PO DAILY 11/30/18 DiphenhydrAMINE [Benadryl] 25 mg PO QHS 03/05/19 Primary Care Physician: Mik Hung MD [NON-STAFF] - Please follow up with your Primary Care Physician in: 1-2 weeks. Test Results: Test results from this visit will be discussed in further detail at your follow- up appointment, if applicable.
[2019-03-06] MEDS: Aspirin 81 MG TAB.CHEW PO (09:27)
[2019-03-06] MEDS: Pantoprazole Sodium 20 MG Tablet PO (09:27)
[2019-03-06 10:00] VITALS: BP 122/79; PULSE 71; RESP 16; TEMP 36.6; O2SAT 93
--- NOTE | 2019-03-06 14:17 | DS.PCM_ITS ---
Discharge Date and Diagnosis Date of Admission: 03/05/19 Date of Discharge: 03/06/19 - Primary Discharge Diagnosis Right facial paresthesia, TIA and stroke ruled out. - Secondary Discharge Diagnosis Chronic Problems (Last Updated 03/05/19 @ 12:54 by Nile Calles MD) Personal history of colonic polyps (Chronic) Hemorrhoids (Chronic) Acid reflux (Chronic) Heart murmur (Chronic) Rheumatoid arthritis (Chronic) Tobacco abuse (Chronic) Chronic back pain (Chronic) Hospital Course and Treatment Imaging Results: Clinical Impression(s) from Imaging Studies Chest X-Ray 03/05/19 09:54 IMPRESSION: Minimal increased linear markings at the lung bases suggestive of linear atelectasis. Electronically Signed: Kings Smith, at 11:12 EDT , Service support , Head CTA 03/05/19 09:54 IMPRESSION: Normal [place] without a demonstrated aneurysm or hemodynamically significant stenosis. Electronically Signed: Kings Smith, at 11:08 EDT , Service support , Neck CTA 03/05/19 09:54 IMPRESSION: Normal bilateral cervical carotid and vertebral arteries. Electronically Signed: Kings Smith, at 11:10 EDT , Service support , Brain MRI 03/05/19 12:43 IMPRESSION: Normal unenhanced MRI of the brain. No MRI evidence for acute stroke. The diffusion weighted sequence is normal. Electronically Signed: Wilmer Lopez, at 22:01 EDT Tel , Service support , Procedures: 2-D Echocardiogram, EKG Summary of Care Provided: Patient seen and examined on the day of discharge and appeared to be stable to be discharged home. Numbness and tingling on the right side of her face is improving. She denies any new symptoms. Her vital signs are stable. The patient is a 48 year old F admitted because of right facial paresthesia with concern of probable TIA versus acute stroke. Her risk factors were diet controlled hyperlipidemia and being on hormone replacement for hysterectomy. No history of diabetes, hypertension, heart disease. Initial CT scan brain showed no acute infarct or hemorrhage. CTA of the head and neck revealed no evidence of hemodynamically significant vascular disease or stenosis. EKG revealed normal sinus rhythm without evidence of acute ischemic changes or cardiac arrhythmias. Patient had no focal deficit on physical examination. She was treated with aspirin and Lipitor. Her vital signs were stable throughout admission. Symptoms of right facial paresthesia improved. There was no obvious etiology identified. MRI brain was done and showed no evidence of acute infarct or hemorrhage. 2D echocardiogram revealed ejection fraction of 65%, bubble contrast study that was negative for [id number] shunt, no significant valvular heart disease. Acute stroke ruled out. Lipid profile revealed total cholesterol of 182, LDL cholesterol of 110 and HDL cholesterol of 32 . Triglycerides were 200. Patient discharged home in a stable medical condition, continued on her previous home medication without any changes, recommended follow-up with PCP in 1 to 2 weeks. - Physical Exam General: Alert, Oriented x3, Cooperative, No apparent distress HEENT: Atraumatic, PERRLA, EOMI, Normocephalic Oral: Moist Mucosa, No Gingival or Mucosal Lesions/ Ulcerations Neck: Supple, No JVD, Negative Carotid Bruits, Trachea Midline, Thyroid Normal Size and Texture Lungs: Clear to auscultation, Normal air movement, No rhonchi, No wheeze, No rales Cardiovascular: Regular rate, Regular Rhythm, Normal S1, Normal S2, No murmurs Abdomen: Bowel Sounds Present, Soft, Non Tender, Non-Distended, No Hepato- splenomegaly Extremities: No clubbing, No cyanosis, No edema Skin: No rashes, No breakdown Lymphatic: No Cervical, Supraclavicular, or Inguinal Adenopathy Neurological: Cranial nerves II-XII grossly intact, Motor Exam 5/5 strength throughout Psych/Mental Status: Normal Affect, Appropriate Vital Signs Temp Pulse Resp BP Pulse Ox 97.8 F 71 16 122/79 H 93 03/06/19 10:00 03/06/19 10:00 03/06/19 10:00 03/06/19 10:03/06/19 10:00 Oxygen Delivery Method Room Air Weight: 167 lb Body Mass Index (BMI) 26.2 Finger Stick Blood Glucose 78 Intake and Output for Last 24 Hours 03/04/19 03/05/19 03/06/19 23:59 23:59 23:59 Intake Total 902 / 1108 1273 / 1273 Balance 902 / 1108 1273 / 1273 Laboratory Tests Past 24 Hrs 03/06/19 03/06/19 05:55 05:55 WBC 9.0 RBC 5.20 Hgb 15.4 H Hct 47.0 MCV 90.4 MCH 29.6 MCHC 32.8 RDW 14.2 RDW Differential 46.7 H Plt Count 192 MPV 10.2 Immature Gran % (Auto) 0.100 Neut % (Auto) 52.7 Lymph % (Auto) 36.4 [place] % (Auto) 7.6 Eos % (Auto) 3.0 Baso % (Auto) 0.2 Absolute Neuts (auto) 4.7 Absolute Lymphs (auto) 3.26 Total Counted Not Reportable Triglycerides 200 H Cholesterol 182 LDL Cholesterol 110 VLDL Cholesterol 40 HDL Cholesterol 32 L Discharge Activity: Return to Normal Activity Weight Bearing Status: Full weight bearing Call your doctor if you observe: Fever of 101 or Higher, Shortness of breath, Dizziness, Fainting spells, Chest pain, Increased palpitations (irregular heartbeat), Uncontrolled pain Home Medications: Medications to take at Discharge Estradiol [Estrace] 1 mg PO DAILY 01/22/18 Lactobacillus acidophilus capsule 10 mg PO QDAY 02/08/18 multivitamin tablet 1 tab PO QDAY 02/08/18 omeprazole 20 mg capsule,delayed release 20 mg PO QDAY 02/08/18 Cholecalciferol (Vitamin D3) [Vitamin D3] 1,200 units PO DAILY 11/30/18 DiphenhydrAMINE [Benadryl] 25 mg PO QHS 03/05/19 Primary Care Physician: Mik Hugn MD [NON-STAFF] - Please follow up with your Primary Care Physician in: 1-2 weeks. Disposition: Home Minutes spent on discharge:: 25 Patient Condition:: Stable Medical Necessity - Tobacco Use Smoking Status: Current every day smoker Tobacco Use: Cigarettes Meaningful Use Info Meaningful Use Diagnoses (Choose all that apply): None applicable Code Visit OBSV E&M: 57503 Observation care discharge
== END 2019-03-06 07:57 | disposition home or self-care (01) ==
LOC: ED 11:25 → PCU 12:24
PROVIDERS: Admitting Provider Hospitalist; Emergency Provider Emergency Medicine; Referring Provider Hospitalist; Visit Provider Hospitalist
DX: R20.2 Paresthesia of skin (principal); R06.00 Dyspnea, unspecified; R29.701 NIHSS score 1; M06.9 Rheumatoid arthritis, unspecified; E78.5 Hyperlipidemia, unspecified; K21.9 Gastro-esophageal reflux disease without esophagitis; Z79.899 Other long term (current) drug therapy; Z79.890 Hormone replacement therapy; F17.210 Nicotine dependence, cigarettes, uncomplicated
CPT/HCPCS: 36415; 70496; 70498; 70551; 71045; 80048; 80061; 82962; 84484; 85025; 85610; 85730; 93005; 93306; 96360; 96361; 97161; 99218; 99283; J7030; Q9967; A4216; G0378

== ENCOUNTER 2021-06-28 05:15 | Emergency (ER) | payer OTHER, SELFPAY ==
[2021-06-28 05:16] VITALS: BP 169/90; PULSE 105; RESP 16; TEMP 36.9; O2SAT 98; BMI 26.7
--- NOTE | 2021-06-28 05:55 | EDS_ITS ---
HPI History of Present Illness Chief Complaint: Back Informant: patient Narrative Narrative: Patient has exacerbation of back pain. She has had this off and on for years. She was here in 2016 with some back pain. She has had episodic pain. She is seeing a chiropractor off and on. She has been having pain now for 1 to 2 months. She states that she just jolted once recently. When she woke up the next morning her back was sore and is just never gotten better. She has had episodes where she has urinary leakage. But most of this is related to significant pain and is hard for her to get up and get to the bathroom in time. She does not have ongoing incontinence. She knows when she needs to go. No bowel incontinence. No saddle anesthesia. No pain or radicular symptoms at all. No fevers or chills. No acute trauma. She has had x-rays recently at chiropractor. No history of cancer. [facility] Medical History Acid reflux Chronic back pain Heart murmur Hemorrhoids Rheumatoid arthritis Tobacco abuse Home Medications estradiol 1 mg PO DAILY 01/22/18 [History Last Taken 03/05/19] Lactobacillus acidophilus 10 mg PO QDAY 02/08/18 [History Last Taken 03/05/19] multivitamin 1 tab PO QDAY 02/08/18 [History Last Taken 03/05/19] omeprazole 20 mg capsule,delayed release 20 mg PO QDAY 02/08/18 [History Last Taken 03/05/19] cholecalciferol (vitamin D3) 1,200 units PO DAILY 11/30/18 [History Last Taken 03/05/19] diphenhydramine HCl 25 mg PO QHS 03/05/19 [History Last Taken 03/04/19] prednisone 60 mg PO DAILY #15 tab 06/28/21 [Rx Last Taken Unknown] tramadol 50 mg PO Q6H PRN 3 Days #12 tab 06/28/21 [Rx Last Taken Unknown] Allergy/AdvReac Type Severity Reaction Status Date / Time No Known Allergies Allergy Verified 06/28/21 05:20 Family History Father Arthritis Diabetes Heart disease Hypertension Cancer Skin cancer Thyroid disorder Thyroid cancer CAD (coronary artery disease) Mother Arthritis Diabetes Brother Hypertension CVA (cerebral vascular accident) Social History Smoking Status: Current every day smoker tobacco type: cigarettes second hand exposure: Yes alcohol intake: never substance use type: does not use caffeine: Yes what type of physical activity do you participate in: none frequency: does not exercise seatbelt use: always ROS ROS ED Constitutional Constitutional ED: Denies chills or fever(s) ENT ENT ED: Denies rhinorrhea or sore throat Cardiovascular Cardiovascular: Denies palpitations Respiratory/Chest Respiratory/Chest: Denies dyspnea Gastrointestinal Gastrointestinal: Denies abdominal pain, constipation, diarrhea, melena, nausea or vomiting Genitourinary Genitourinary ED: Reports other Details: See history of present illness. ; Denies dysuria, hematuria or urinary frequency Musculoskeletal Musculoskeletal: Reports back pain; Denies neck pain Integumentary Denies rash Neurologic Neurologic: Denies headache(s) Psychiatric Psychiatric: Denies anxiety or depression Endocrine Endocrinology: Denies polydipsia or polyuria Hematologic/Lymphatic Hematologic/Lymphatic: Denies easy bleeding or easy bruising Allergic/Immunologic Allergic/Immunologic ED: Denies urticaria EXAM Physical Exam Const Vital Signs: 06/28/21 05:16 Temperature 98.4 F Temperature Source Oral Pulse Rate 105 H Respiratory Rate 16 Blood Pressure 169/90 H Blood Pressure Mean 116 Pulse Ox 98 Oxygen Delivery Method Room Air Positive well nourished and well developed General Appearance ED: well developed HEENT Reports moist mucous membranes Eyes General Eye ED: Negative for scleral icterus Neck No no JVD Resp normal respiratory effort and clear to auscultation bilaterally Auscultation: Negative for rales, rhonchi or wheezes Cardio regular rate GI normal to inspection, nondistended, normoactive bowel sounds Back/Spine normal to inspection and no thoracic nor lumbar tenderness Back/Spine Narrative: Patient's tenderness is actually down at the SI joint area. There is no erythema or skin changes. There is really no paraspinal lumbar tenderness. It is sore when she moves. Extremity normal to inspection General Extremety ED: Negative for edema or tenderness General Extremity: Negative for edema Neuro oriented x3 Neuro Narrative: Patient has 2+ bilateral patella and 2+ bilateral Achilles reflexes. She can press on toes and pull up. She can walk and stand. Quadricep strength is good. There is no sensory abnormality. Sensorium / Orientation: alert Skin no rashes or lesions noted MDM MDM MDM Narrative Medical decision making narrative: I am not finding any neurologic deficit on this patient. She has had her symptoms for 1 to 2 months. I think this is most closely sacroiliac pain. She tried some Naprosyn at home. I gave her a small amount of benefit. I did do online prescribing report that shows no narcotics and only one prescription for Flexeril. I do not think Flexeril will help works I doubt this is muscular. I will place her on a short course of prednisone. I will write for some tramadol as I think she has genuine discomfort. I discussed follow-up. We discussed reasons to return which are worsening pain, weakness numbness or continual bowel or bladder dysfunction. Discharge Plan Triage Chief Complaint: Back ED Provider: Yao Walker Dx/Rx/DC Orders Clinical Impression: Back pain, sacroiliac Instructions: ED Sacroiliitis Prescriptions: New prednisone 20 MG tablet 60 mg PO DAILY Qty: 15 RF: 0 tramadol 50 mg tablet 50 mg PO Q6H PRN (Reason: pain) 3 Days Qty: 12 RF: 0 No Action omeprazole 20 mg capsule,delayed release(DR/EC) 20 mg PO QDAY RF: 0 multivitamin tablet 1 tab PO QDAY RF: 0 Lactobacillus acidophilus [Acidophilus] capsule 10 mg PO QDAY RF: 0 estradiol 1 MG tablet 1 mg PO DAILY RF: 0 cholecalciferol (vitamin D3) 50,000 UNIT capsule 1,200 units PO DAILY RF: 0 diphenhydramine HCl 25 MG capsule 25 mg PO QHS RF: 0 Primary Care Provider: Mik Hung Referrals: Mik Hung MD [Primary Care Provider] - 3-5 Days if not improving Disposition Disposition: Home, Self Care
[2021-06-28] MEDS: predniSONE 20 MG Tablet 60 MG PO (06:07)
[2021-06-28] MEDS: Morphine 4 MG/ML Syringe IM (06:08)
== END 2021-06-28 06:36 | disposition home or self-care (01) ==
PROVIDERS: Emergency Provider Emergency Medicine; PCP Family Medicine
DX: M53.3 Sacrococcygeal disorders, not elsewhere classified (principal); F17.210 Nicotine dependence, cigarettes, uncomplicated; G89.29 Other chronic pain; K21.9 Gastro-esophageal reflux disease without esophagitis; M06.9 Rheumatoid arthritis, unspecified; Z79.52 Long term (current) use of systemic steroids
CPT/HCPCS: 96372; 99283

== ENCOUNTER 2021-07-03 04:54 | Emergency (ER) | payer OTHER, SELFPAY ==
[2021-07-03 04:55] VITALS: PULSE 117; RESP 18; TEMP 36.7; O2SAT 95; BMI 27.6
[2021-07-03 04:59] VITALS: BP 145/67
--- NOTE | 2021-07-03 05:09 | EX.ED.DYSGE1 ---
HPI History of Present Illness Chief Complaint: Back Detail of Chief Complaint: Back pressure and she will Informant: patient Onset/Context/Timing Onset: Days Context: Gradual Onset Narrative Narrative: Patient presents with worsened low back pain and chills. Patient was seen in the ER on the with acute on chronic low back pain. On examination at that time pain was across the SI joints bilaterally. Normal neuro exam was noted. Patient was given prescriptions for prednisone and tramadol. She states she has not been taking the tramadol because she was worried about the side effects. She states she had been feeling improved until this evening. She now reports chills and increased pressure in her low back. She does report urinary urgency. No fevers been noted. No cough or congestion. PFSH PFS Medical History Acid reflux Chronic back pain Heart murmur Hemorrhoids Rheumatoid arthritis Tobacco abuse Home Medications multivitamin 1 tab PO QDAY 02/08/18 [History Last Taken 03/05/19] omeprazole 20 mg capsule,delayed release 20 mg PO QDAY 02/08/18 [History Last Taken 03/05/19] cholecalciferol (vitamin D3) 1,200 units PO DAILY 11/30/18 [History Last Taken 03/05/19] diphenhydramine HCl 25 mg PO QHS 03/05/19 [History Last Taken 03/04/19] prednisone 60 mg PO DAILY #15 tab 06/28/21 [Rx Last Taken Unknown] tramadol 50 mg PO Q6H PRN 3 Days #12 tab 06/28/21 [Rx Last Taken Unknown] sulfamethoxazole-trimethoprim [Bactrim DS] 1 tab PO BID #20 tab 07/03/21 [Rx Last Taken Unknown] Allergy/AdvReac Type Severity Reaction Status Date / Time No Known Allergies Allergy Verified 07/03/21 04:55 Family History Father Arthritis Diabetes Heart disease Hypertension Cancer Skin cancer Thyroid disorder Thyroid cancer CAD (coronary artery disease) Mother Arthritis Diabetes Brother Hypertension CVA (cerebral vascular accident) Social History Smoking Status: Current every day smoker tobacco type: cigarettes second hand exposure: Yes alcohol intake: never substance use type: does not use caffeine: Yes what type of physical activity do you participate in: none frequency: does not exercise seatbelt use: always ROS ROS ED Constitutional Constitutional ED: Reports chills; Denies fever(s) Eyes Eyes: Denies change in vision ENT ENT ED: Denies sore throat Cardiovascular Cardiovascular: Denies chest pain Respiratory/Chest Respiratory/Chest: Denies cough or dyspnea Gastrointestinal Gastrointestinal: Denies abdominal pain, diarrhea, nausea or vomiting Genitourinary Genitourinary ED: Reports urinary frequency; Denies dysuria Musculoskeletal Musculoskeletal: Reports back pain Integumentary Denies rash Neurologic Neurologic: Denies headache(s), paresthesias or weakness Allergic/Immunologic Allergic/Immunologic ED: Denies urticaria EXAM Physical Exam Const Vital Signs: 07/03/21 04:55 07/03/21 04:59 07/03/21 05:22 Temperature 98.0 F Temperature Source Temporal Pulse Rate 117 H Respiratory Rate 18 Blood Pressure 145/67 H Blood Pressure Mean 93 Pulse Ox 95 88 Oxygen Delivery Method Room Air Room Air Oxygen Flow Rate (L/min) 07/03/21 05:40 07/03/21 06:40 Temperature 103.1 F H 99.2 F H Temperature Source Oral Oral Pulse Rate 118 H 102 H Respiratory Rate 20 H 16 Blood Pressure 125/66 H 105/63 Blood Pressure Mean 85 77 Pulse Ox 96 95 Oxygen Delivery Method Nasal Cannula Nasal Cannula Oxygen Flow Rate (L/min) 2 2 Positive well nourished and well developed General Appearance ED: well developed HEENT Reports normocephalic and head/scalp atraumatic Eyes PERRL and EOMs intact bilaterally Neck supple Chest Wall inspection of chest normal and palpation of chest normal Resp normal respiratory effort and clear to auscultation bilaterally Cardio regular rate and regular rhythm GI normal to inspection, nondistended, normoactive bowel sounds and non-tender Palpation: soft Back/Spine no CVA tenderness Back/Spine Narrative: Mild tenderness of the posterior sacrum. No erythema or skin rash noted. Extremity normal to inspection Neuro oriented x3 and no sensory deficits noted Sensorium / Orientation: alert Motor Exam: strength 5/5 throughout Psych mental status grossly normal Skin no rashes or lesions noted MDM MDM MDM Narrative Medical decision making narrative: Patient was given Toradol, small dose of morphine, Zofran. Lab work, urinalysis and Covid swab ordered. To the patient being tachycardic I did ask for an oral temperature which returns at 103. Tylenol was ordered. Lab Data Attestation: I reviewed the patient's lab results. Labs: Laboratory Results - last 24 hr 07/03/21 07/03/21 07/03/21 05:26 05:26 06:04 WBC 15.7 H RBC 5.16 Hgb 15.3 H Hct 46.6 MCV 90.3 MCH 29.7 MCHC 32.8 RDW Std Deviation 44.6 H RDW Coeff of Raymond 13.4 Plt Count 170 MPV 10.4 Immature Gran % (Auto) 0.400 Neut % (Auto) 87.0 H Lymph % (Auto) 10.8 L [place] % (Auto) 1.2 Eos % (Auto) 0.4 Baso % (Auto) 0.2 Absolute Neuts (auto) 13.6 H Absolute Lymphs (auto) 1.70 Nucleated RBC % 0 Sodium 138 Potassium 4.0 Chloride 103 Carbon Dioxide 28.0 Anion Gap 7 BUN 14 Creatinine 0.69 Estim Creat Clear Calc 84.23 Est GFR (MDRD) Af Amer 115 Est GFR (MDRD) Non-Af 95 BUN/Creatinine Ratio 20.2 H Glucose 138 H Calcium 8.8 Urine Color Yellow Urine Clarity Sl. Cloudy Urine pH 6.5 Ur Specific [place] 1.010 Urine Protein 30 H Urine Glucose (UA) Normal Urine Ketones Negative Urine Occult Blood 250 H Urine Nitrite Positive H Urine Bilirubin Negative Urine Urobilinogen Normal Ur Leukocyte Esterase 25 H Urine RBC 50-100 SEEN Urine WBC 0-5 SEEN Ur Squamous Epith Cells 0-5 SEEN Urine Bacteria 1+ Urine Mucus 0 SEEN Radiography Chest X-Ray - ED: 1 View, Read by ED Physician, Normal, Heart, Lungs and Mediastinum Diagnostic Testing: Clinical Impression(s) from Imaging Studies Chest X-Ray 07/03/21 05:40 IMPRESSION: No demonstrated acute cardiopulmonary process. Electronically Signed: Camryn Hall MD at 6:30 EDT Tel , Service support , Abdomen/Pelvis CT 07/03/21 06:27 IMPRESSION: Left renal edema consider pyelonephritis. Minimal left pelviectasis without visualized ureteral stones. Constipation. No appendicitis. Minimal lower lobe atelectasis. Status post cholecystectomy Status post hysterectomy. Electronically Signed: Camryn Hall MD at 7:33 EDT Tel , Service support , Treatment and Re-Evaluation Comments:: On repeat evaluation patient resting comfortably. Temperature is improved. Patient was placed on oxygen for short time secondary to a pulse ox of 88%. She is now back on room air and satting 92%. Lab work reviewed with patient and at bedside. White count is elevated at 15.7, but the patient has been on steroids for the past 4 days. Chemistry studies unremarkable. Urinalysis shows 50-100 RBCs with 1+ bacteria and positive nitrates. CT flank obtained which reveals left renal edema concerning for pyelonephritis. Patient has describes urinary urgency recently. She will be treated with a 10-day course of Bactrim for pyelonephritis. Return instructions are provided. Patient and are both comfortable with the plan. Discharge Plan Triage Chief Complaint: Back Other Complaint: General Illness ED Provider: Areli Salinas Dx/Rx/DC Orders Clinical Impression: Pyelonephritis Instructions: ED Pyelonephritis, Female (Adult) Prescriptions: New sulfamethoxazole-trimethoprim [Bactrim DS] 800-160 mg tablet 1 tab PO BID Qty: 20 RF: 0 No Action omeprazole 20 mg capsule,delayed release(DR/EC) 20 mg PO QDAY RF: 0 multivitamin tablet 1 tab PO QDAY RF: 0 cholecalciferol (vitamin D3) 50,000 UNIT capsule 1,200 units PO DAILY RF: 0 diphenhydramine HCl 25 MG capsule 25 mg PO QHS RF: 0 prednisone 20 MG tablet 60 mg PO DAILY Qty: 15 RF: 0 tramadol 50 mg tablet 50 mg PO Q6H PRN (Reason: pain) 3 Days Qty: 12 RF: 0 Primary Care Provider: Mik Hung Referrals: Mik Hung MD [Primary Care Provider] - 1 Week Disposition Disposition: Home, Self Care
[2021-07-03 05:22] VITALS: O2SAT 88
[2021-07-03] MEDS: Ondansetron 4 MG/2 ML Vial IV (05:22)
[2021-07-03] MEDS: Ketorolac 30 MG/ML Syringe IV (05:23)
[2021-07-03] MEDS: Morphine 2 MG/ML Syringe IV (05:25)
[2021-07-03 05:34] LABS: Absolute Neutrophil Count 13.6 X10^3/uL (2.0-7.7); Basophil# 0.03 X10^3/uL; Basophil% 0.2 % (0-1); Eosinophil# 0.07 X10^3/uL; Eosinophils% 0.4 % (0-5); Hematocrit 46.6 % (37-47); Hemoglobin 15.3 g/dL (12.0-15.0); Lymphocyte % 10.8 % (19-41); Mean Corp Hgb Conc 32.8 g/dL (32-36); Mean Corpuscular Hgb 29.7 pg (27.0-32.0); Mean Corpuscular Volume 90.3 fL (81-99); Mean Platelet Vol. 10.4 fl (6.2-12.0); Monocyte# 0.19 X10^3/uL; Monocyte% 1.2 % (0-10); NRBC Flagged by Analyzer 0 % (0-5); Neutrophil # 13.64 X10^3/uL (2.7-7.7); Platelet Count 170 K/mm3 (150-450); RBC Distribution Width CV 13.4 % (11.6-14.6); RBC Distribution Width SD 44.6 fl (35.1-43.9); Red Blood Count 5.16 M/mm3 (4.2-5.4); White Blood Count 15.7 K/mm3 (4.4-11.0)
[2021-07-03 05:40] VITALS: BP 125/66; PULSE 118; RESP 20; TEMP 39.5; O2SAT 96
--- NOTE | 2021-07-03 05:40 | RAD_ITS ---
STUDY: X-RAY CHEST REASON FOR EXAM: Female, 50 years old. Fever TECHNIQUE: Single AP portable view of the chest. COMPARISON: March 05, 2019 chest x-ray FINDINGS: There is a minimal focus of lingular atelectasis and/or scarring. There is no demonstrated pleural abnormality. Normal size heart. Normal mediastinum and rose. Normal visualized pulmonary arteries. Normal visualized aortic arch and descending thoracic aorta. Normal visualized thoracic spine. Normal visualized ribs, clavicles, and shoulders. There is no demonstrated abnormality of the visualized soft tissue structures of the upper abdomen. RAD/Chest 1 View (Portable) IMPRESSION: No demonstrated acute cardiopulmonary process. Electronically Signed: Camryn Hall MD at 6:30 EDT Tel , Service support ,
[2021-07-03] MEDS: Acetaminophen 500 MG Tablet 1000 MG PO (05:46)
[2021-07-03 05:49] LABS: Anion Gap 7 (5-15); BUN 14 mg/dL (7-18); BUN/Creat Ratio 20.2 RATIO (10-20); Calcium,Total 8.8 mg/dL (8.5-10.1); Chloride 103 mmol/L (98-107); Creatinine, Serum 0.69 mg/dL (0.55-1.02); EST Glomerular Filtration Rate 95 mL/min (>60); Est Glom Filt Rate - Afr Amer 115 mL/min (>60); Estimated Creatinine Clearance 84.23 ml/min; Glucose 138 mg/dL (74-106); Sodium Level 138 mmol/L (136-145)
[2021-07-03 06:13] LABS: Mucous, Urine 0 SEEN /hpf (<or=2+)
[2021-07-03 06:14] LABS: Color, Urine Yellow (Yellow); Glucose, Dipstick Normal (Normal); Ketone-Dipstick Negative (Negative); Leukocyte Esterase-Dipstick 25 /ul (Negative); Nitrite-Dipstick Positive (Negative); Occult Blood-Urine 250 /ul (Negative); Protein-Dipstick 30 mg/dl (Negative); Urine Bilirubin Dipstick Negative (Negative); Urine Clarity Sl. Cloudy (Clear); Urine Urobilinogen Normal (Normal); Urine pH 6.5 (5.0 - 8.0)
[2021-07-03 06:22] LABS: Red Blood Cells-Urine 50-100 SEEN /hpf (0-5)
[2021-07-03 06:23] LABS: Bacteria 1+ /hpf (None Seen); Squamous Epithelial Cells - UA 0-5 SEEN /hpf (5-10); White Blood Cells 0-5 SEEN /hpf (0-5)
--- NOTE | 2021-07-03 06:27 | CT_ITS ---
STUDY: CT ABDOMEN AND PELVIS WITHOUT CONTRAST REASON FOR EXAM: Female, 50 years old. Back pain, hematuria RADIATION DOSAGE (If Supplied By Facility): CTDIvol = ( 7.25 ) mGy, DLP = ( 367.86 ) mGycm TECHNIQUE: Transaxial images were obtained from the dome of the diaphragm to the symphysis pubis without oral contrast, and without intravenous contrast. Sagittal and coronal images were reconstructed. Individualized dose optimization techniques were used for this CT. COMPARISON : November 30, 2018 CT scan abdomen and pelvis FINDINGS: There is minimal lower lobe atelectasis. The visualized portions of the heart are within normal limits. Normal liver. There is non-visualization of the gallbladder, which may be secondary to either contraction or a prior cholecystectomy. Normal spleen. Normal pancreas. Normal bilateral adrenal glands. Normal right kidney. There there is a suggestion of left renal edema. There is left renal peripelvic nephric stranding. There is a 3 mm stone left kidney. There is minimal left pelviectasis. Normal visualized stomach. Normal small intestine. There is mild to moderate stool in the colon. The cecum is stool-filled and low lying. The cecum is to the left of midline in the pelvis. The appendix is visualized and appears normal. There is minimal calcification of the distal aorta. Normal inferior vena cava. Normal retroperitoneum. There is mild wall thickening of the bladder appear There is absence of the uterus consistent with a prior hysterectomy. Normal abdominal wall. Normal osseous structures. CT/Abdomen/Pelvis without Cont IMPRESSION: Left renal edema consider pyelonephritis. Minimal left pelviectasis without visualized ureteral stones. Constipation. No appendicitis. Minimal lower lobe atelectasis. Status post cholecystectomy Status post hysterectomy. Electronically Signed: Camryn Hall MD at 7:33 EDT Tel , Service support ,
[2021-07-03 06:40] VITALS: BP 105/63; PULSE 102; RESP 16; TEMP 37.3; O2SAT 95
[2021-07-03] MEDS: Smz/Tmp Ds Tablet 1 TABLET PO (07:50)
[2021-07-03 07:57] VITALS: BP 97/57; PULSE 98; RESP 18; O2SAT 98
== END 2021-07-03 07:59 | disposition home or self-care (01) ==
PROVIDERS: Emergency Provider Emergency Medicine; PCP Family Medicine
DX: N12 Tubulo-interstitial nephritis, not specified as acute or chronic (principal); F17.210 Nicotine dependence, cigarettes, uncomplicated; G89.29 Other chronic pain; K21.9 Gastro-esophageal reflux disease without esophagitis; M06.9 Rheumatoid arthritis, unspecified; Z79.52 Long term (current) use of systemic steroids; Z90.49 Acquired absence of other specified parts of digestive tract; Z90.710 Acquired absence of both cervix and uterus; K59.00 Constipation, unspecified; N28.89 Other specified disorders of kidney and ureter
CPT/HCPCS: 71045; 74176; 80048; 81001; 85025; 87426; 99285; A4216; J2405

== ENCOUNTER 2021-07-05 12:12 | Emergency (ER) | payer OTHER, SELFPAY ==
[2021-07-05 12:14] VITALS: BP 107/79; PULSE 98; RESP 16; TEMP 36.8; O2SAT 96; BMI 27.1
--- NOTE | 2021-07-05 12:40 | EDS_ITS ---
HPI History of Present Illness Chief Complaint: General Illness Informant: patient Onset/Context/Timing Onset: Days Context: Gradual Onset Timing: Continuous Current Severity: Mild Maximum Severity: Mild Narrative Narrative: 50-year-old female history of rheumatoid arthritis. She has had a prior cholecystectomy. This is her third visit about a week the emergency department. Her most recent visit on 1015 she was diagnosed with pyelonephritis and was placed on Bactrim twice daily. She states she is so fatigued. Has some nausea but no vomiting or diarrhea. No fever currently. Prior similar symptoms: Yes Recent Illness/Hospitalization: No PFSH PFSH Medical History Acid reflux Chronic back pain Heart murmur Hemorrhoids Rheumatoid arthritis Tobacco abuse Home Medications multivitamin 1 tab PO QDAY 02/08/18 [History Last Taken 03/05/19] omeprazole 20 mg capsule,delayed release 20 mg PO QDAY 02/08/18 [History Last Taken 03/05/19] cholecalciferol (vitamin D3) 1,200 units PO DAILY 11/30/18 [History Last Taken 03/05/19] diphenhydramine HCl 25 mg PO QHS 03/05/19 [History Last Taken 03/04/19] sulfamethoxazole-trimethoprim [Bactrim DS] 1 tab PO BID #20 tab 07/03/21 [Rx Last Taken Unknown] atorvastatin 20 mg PO DAILY 07/05/21 [History Last Taken Unknown] Allergy/AdvReac Type Severity Reaction Status Date / Time No Known Allergies Allergy Verified 07/05/21 12:18 Family History Father Arthritis Diabetes Heart disease Hypertension Cancer Skin cancer Thyroid disorder Thyroid cancer CAD (coronary artery disease) Mother Arthritis Diabetes Brother Hypertension CVA (cerebral vascular accident) Social History Smoking Status: Former smoker second hand exposure: Yes alcohol intake: never substance use type: does not use caffeine: Yes what type of physical activity do you participate in: none frequency: does not exercise seatbelt use: always ROS ROS ED ROS Narrative Nausea and fatigue. Review of Systems ROS Unobtainable: Denies due to encephalopathy Constitutional Constitutional ED: Denies fever(s) Eyes Eyes: Denies change in vision ENT ENT ED: Denies ear pain or sore throat Cardiovascular Cardiovascular: Denies chest pain Respiratory/Chest Respiratory/Chest: Denies cough or dyspnea Gastrointestinal Gastrointestinal: Reports nausea; Denies abdominal pain, diarrhea or vomiting Genitourinary Genitourinary ED: Denies dysuria Musculoskeletal Musculoskeletal: Denies myalgias Integumentary Denies rash Neurologic Neurologic: Denies headache(s) Psychiatric Psychiatric: Denies depression Endocrine Endocrinology: Denies polyuria Allergic/Immunologic Allergic/Immunologic ED: Denies urticaria EXAM Physical Exam Narrative Exam Narrative: Noise female no acute distress. Vital signs stable afebrile. Exam benign. HEENT exam normal. Lungs clear. Heart regular rate and rhythm no murmur. Abdomen soft nontender. Normal bowel sounds no peritoneal signs. Moving all 4 extremities. No edema. Back nontender. No CVA tenderness. Neurologically she is awake alert with no focal motor deficits. Patient appears well. Is a very benign exam. Const Vital Signs: 07/05/21 12:14 07/05/21 13:43 07/05/21 14:17 Temperature 98.2 F 98.3 F Temperature Source Temporal Oral Pulse Rate 98 84 81 Respiratory Rate 16 18 18 Blood Pressure 107/79 107/77 129/115 H Blood Pressure Mean 88 87 119 Pulse Ox 96 Oxygen Delivery Method Room Air Positive well nourished and well developed; Negative for obese, cachectic, contractures or unkempt General Appearance ED: well developed and NAD; Negative for unkempt, cachectic, contractures, cyanotic or diaphoretic Nutritional Appearance: Negative for cachectic or obese HEENT Reports moist mucous membranes Eyes PERRL and EOMs intact bilaterally Neck no lymphadenopathy, supple and no JVD Chest Wall inspection of chest normal and palpation of chest normal Resp normal respiratory effort and clear to auscultation bilaterally Effort and Inspection: Negative for pain with movement Auscultation: Negative for rales, rhonchi or wheezes Cardio regular rate, regular rhythm, S1 normal heart sound, S2 normal heart sound and no murmurs GI normal to inspection, nondistended, normoactive bowel sounds, non-tender, non- distended and no masses Inspection: Negative for abdominal distention Auscultation: normoactive bowel sounds Palpation: soft; Negative for tender, guarding or rebound tenderness present Back/Spine no CVA tenderness Extremity normal to inspection General Extremety ED: Negative for edema or tenderness General Extremity: Negative for edema Neuro oriented x3 and CN's II-XII intact bilaterally Sensorium / Orientation: alert; Negative for orientation impaired, lethargic or stuporous Motor Exam: strength 5/5 throughout Psych mental status grossly normal Appearance: Negative for unkempt Attitude: No agitated Mood & Affect: Negative for depressed or tearful Skin no rashes or lesions noted, no wounds and skin turgor normal MDM MDM MDM Narrative Medical decision making narrative: Middle-aged female recently diagnosed with pyonephritis. Currently on antibiotic. Clinically does not look septic or toxic. She does not look dehydrated. She be treated with IV Zofran for nausea and fluids. Screening labs are being obtained to be compared to her last. I did review her most recent CAT scan which does not show a kidney stone but showed changes in the one kidney consistent with possible pyelonephritis. Repeat exam patient is doing well at 2:47 PM. She will be discharged home. Continue on her current therapy 3 of Bactrim twice a day. Fluids. Follow-up. Lab Data Attestation: I reviewed the patient's lab results. Lab results narrative: CBC shows a white count of 7. Which is improved from the last time which was 15. Hemoglobin 15. Platelets 120,000. Electrolytes unremarkable gap of 6 normal BUN and creatinine. Glucose of 100. Labs: Laboratory Results - last 24 hr 07/05/21 07/05/21 12:30 12:30 WBC 7.7 RBC 5.19 Hgb 15.2 H Hct 46.4 MCV 89.4 MCH 29.3 MCHC 32.8 RDW Std Deviation 44.0 H RDW Coeff of Raymond 13.5 Plt Count 120 L MPV 10.2 Immature Gran % (Auto) 0.500 Neut % (Auto) 53.9 Lymph % (Auto) 29.1 [place] % (Auto) 14.5 H Eos % (Auto) 1.7 Baso % (Auto) 0.3 Absolute Neuts (auto) 4.1 Absolute Lymphs (auto) 2.23 Nucleated RBC % 0 Sodium 138 Potassium 3.5 Chloride 102 Carbon Dioxide 30.0 Anion Gap 6 BUN 14 Creatinine 0.61 Estim Creat Clear Calc 95.28 Est GFR (MDRD) Af Amer 134 Est GFR (MDRD) Non-Af 111 BUN/Creatinine Ratio 23.1 H Glucose 100 Calcium 9.0 Discharge Plan Triage Chief Complaint: General Illness ED Provider: Isak Ernandez Dx/Rx/DC Orders Clinical Impression: Pyelonephritis Prescriptions: No Action omeprazole 20 mg capsule,delayed release(DR/EC) 20 mg PO QDAY RF: 0 multivitamin tablet 1 tab PO QDAY RF: 0 cholecalciferol (vitamin D3) 50,000 UNIT capsule 1,200 units PO DAILY RF: 0 diphenhydramine HCl 25 MG capsule 25 mg PO QHS RF: 0 sulfamethoxazole-trimethoprim [Bactrim DS] 800-160 mg tablet 1 tab PO BID Qty: 20 RF: 0 atorvastatin 20 mg tablet 20 mg PO DAILY RF: 0 Primary Care Provider: Mik Hung Referrals: Mik Hung MD [Primary Care Provider] - 1 Week if not improving Activity Restrictions/Additional Instructions: Continue your current therapy. Plenty of fluids and rest. Bactrim 1 pill twice daily. Finish the prescription. Tylenol and Motrin for pain. Follow-up with your doctor if not improving. Disposition Disposition: Home, Self Care
[2021-07-05] MEDS: Ondansetron 4 MG/2 ML Vial IV (12:48)
[2021-07-05] MEDS: 0.9% Normal Saline 1,000 ML 1000 ML IV (12:48)
[2021-07-05 12:53] LABS: Absolute Lymphocyte Count 2.23 X10^3/uL (0.83-4.51); Absolute Neutrophil Count 4.1 X10^3/uL (2.0-7.7); Basophil# 0.02 X10^3/uL; Basophil% 0.3 % (0-1); Eosinophil# 0.13 X10^3/uL; Eosinophils% 1.7 % (0-5); Hematocrit 46.4 % (37-47); Hemoglobin 15.2 g/dL (12.0-15.0); Lymphocyte # 2.23 X10^3/ul (0.83-4.51); Lymphocyte % 29.1 % (19-41); Mean Corp Hgb Conc 32.8 g/dL (32-36); Mean Corpuscular Hgb 29.3 pg (27.0-32.0); Mean Corpuscular Volume 89.4 fL (81-99); Mean Platelet Vol. 10.2 fl (6.2-12.0); Monocyte# 1.11 X10^3/uL; Monocyte% 14.5 % (0-10); NRBC Flagged by Analyzer 0 % (0-5); Neutrophil # 4.13 X10^3/uL (2.7-7.7); Neutrophil % 53.9 % (47-70); Platelet Count 120 K/mm3 (150-450); RBC Distribution Width CV 13.5 % (11.6-14.6); Red Blood Count 5.19 M/mm3 (4.2-5.4); White Blood Count 7.7 K/mm3 (4.4-11.0)
[2021-07-05 12:59] LABS: Anion Gap 6 (5-15); BUN 14 mg/dL (7-18); BUN/Creat Ratio 23.1 RATIO (10-20); Chloride 102 mmol/L (98-107); Creatinine, Serum 0.61 mg/dL (0.55-1.02); EST Glomerular Filtration Rate 111 mL/min (>60); Est Glom Filt Rate - Afr Amer 134 mL/min (>60); Estimated Creatinine Clearance 95.28 ml/min; Glucose 100 mg/dL (74-106); Potassium 3.5 mmol/L (3.5-5.1); Sodium Level 138 mmol/L (136-145)
[2021-07-05 13:43] VITALS: BP 107/77; PULSE 84; RESP 18; TEMP 36.8
[2021-07-05 14:17] VITALS: BP 129/115; PULSE 81; RESP 18
[2021-07-05 14:57] VITALS: BP 121/81; PULSE 83; RESP 16
== END 2021-07-05 15:01 | disposition home or self-care (01) ==
PROVIDERS: Emergency Provider Emergency Medicine; PCP Family Medicine
DX: N12 Tubulo-interstitial nephritis, not specified as acute or chronic (principal); K21.9 Gastro-esophageal reflux disease without esophagitis; M06.9 Rheumatoid arthritis, unspecified; Z87.891 Personal history of nicotine dependence; Z79.899 Other long term (current) drug therapy; Z90.49 Acquired absence of other specified parts of digestive tract
CPT/HCPCS: 80048; 85025; 96361; 96374; 99283; J7030; A4216; J2405

== ENCOUNTER 2021-07-31 07:42 | Emergency (ER) | payer OTHER, SELFPAY ==
[2021-07-31 07:43] VITALS: BP 158/87; PULSE 93; RESP 14; TEMP 36.5; O2SAT 98; BMI 27.6
--- NOTE | 2021-07-31 08:26 | ED.VIS.BACK ---
HPI History of Present Illness Chief Complaint: Back Narrative Narrative: 50-year-old female with acute on chronic exacerbation of lower back pain. she is getting muscle spasms that radiate down the back of her right leg. She states that She has had this multiple times. She denies any direct trauma. No loss of bladder or bowel control. She states she tried to call her primary care doctor but he was actually out sick. She cannot get an appointment until the . Patient states that muscle relaxers and steroids have helped her in the past. [facility] Medical History Acid reflux Chronic back pain Heart murmur Hemorrhoids Rheumatoid arthritis Tobacco abuse Home Medications multivitamin 1 tab PO QDAY 02/08/18 [History Last Taken 03/05/19] omeprazole 20 mg capsule,delayed release 20 mg PO QDAY 02/08/18 [History Last Taken 03/05/19] cholecalciferol (vitamin D3) 3,000 units PO DAILY 11/30/18 [History Last Taken 03/05/19] atorvastatin 20 mg PO DAILY 07/05/21 [History Last Taken Unknown] cyclobenzaprine 10 mg PO TID PRN #20 tablet 07/31/21 [Rx Last Taken Unknown] estradiol 1 mg PO DAILY 07/31/21 [History Last Taken Unknown] prednisone 50 mg PO DAILY 5 Days #25 tab 07/31/21 [Rx Last Taken Unknown] Allergy/AdvReac Type Severity Reaction Status Date / Time No Known Allergies Allergy Verified 07/31/21 07:45 Family History Father Arthritis Diabetes Heart disease Hypertension Cancer Skin cancer Thyroid disorder Thyroid cancer CAD (coronary artery disease) Mother Arthritis Diabetes Brother Hypertension CVA (cerebral vascular accident) Surgical History History of cholecystectomy History of hysterectomy History of tonsillectomy Social History Smoking Status: Former smoker second hand exposure: Yes alcohol intake: never substance use type: does not use caffeine: Yes what type of physical activity do you participate in: none frequency: does not exercise seatbelt use: always ROS ROS ED Constitutional Constitutional ED: Denies chills or fever(s) Eyes Eyes: Denies blurry vision or change in vision ENT ENT ED: Denies rhinorrhea or sore throat Cardiovascular Cardiovascular: Denies chest pain or palpitations Respiratory/Chest Respiratory/Chest: Denies dyspnea or sputum Gastrointestinal Gastrointestinal: Denies abdominal pain or nausea Genitourinary Genitourinary ED: Denies dysuria or hematuria Musculoskeletal Musculoskeletal: Reports back pain; Denies myalgias Integumentary Denies rash Neurologic Neurologic: Denies headache(s) or paresthesias EXAM Physical Exam Const Vital Signs: 07/31/21 07:43 Temperature 97.7 F L Temperature Source Temporal Pulse Rate 93 Respiratory Rate 14 Blood Pressure 158/87 H Blood Pressure Mean 110 Pulse Ox 98 Oxygen Delivery Method Room Air Positive well nourished General Appearance ED: NAD; Negative for pallor HEENT Reports moist mucous membranes Negative for trauma Eyes PERRL and EOMs intact bilaterally Resp normal respiratory effort Cardio regular rate and regular rhythm Back/Spine Back/Spine Narrative: Right lumbar paraspinal muscular tenderness. No midline spinal tenderness, deformity, step-off. Patient is able to stand under her own straight and walk around the room. She has difficulty with bending at the waist but is able to do this slightly. Extremity normal to inspection General Extremety ED: Negative for edema General Extremity: Negative for edema Psych mental status grossly normal Skin no rashes or lesions noted General Skin Exam: Negative for jaundice or pallor MDM MDM MDM Narrative Medical decision making narrative: Patient presenting with acute exacerbation of chronic back pain. She states she cannot get an appointment with her primary care physician. She has no signs or symptoms of cauda equina syndrome. Patient states muscle relaxants and steroids have helped her in the past. Patient was given IM Toradol and Norflex as well as 60 mg of prednisone. I will give her a burst of prednisone for home. She was given follow-up with her primary care as well as Dr. Yadav because she has not seen a specialist for this yet. Patient can return precautions. Impression: 1. Acute exacerbation of chronic back Discharge Plan Triage Chief Complaint: Back ED Provider: Veto Thomas Dx/Rx/DC Orders Instructions: ED Back Spasm, No Trauma Prescriptions: New cyclobenzaprine 10 mg tablet 10 mg PO TID PRN (Reason: Muscle Spasm) Qty: 20 RF: 0 prednisone 10 mg tablet 50 mg PO DAILY 5 Days Qty: 25 RF: 0 No Action omeprazole 20 mg capsule,delayed release(DR/EC) 20 mg PO QDAY RF: 0 multivitamin tablet 1 tab PO QDAY RF: 0 cholecalciferol (vitamin D3) 50,000 UNIT capsule 3,000 units PO DAILY RF: 0 atorvastatin 20 mg tablet 20 mg PO DAILY RF: 0 estradiol 1 mg tablet 1 mg PO DAILY RF: 0 Primary Care Provider: Mik Hung Referrals: Mik Hnug MD [Primary Care Provider] - Sukhjinder Yadav DO [STAFF PHYSICIAN] - As Needed Disposition Disposition: Home, Self Care
[2021-07-31] MEDS: predniSONE 20 MG Tablet 60 MG PO (08:35)
[2021-07-31] MEDS: Ketorolac 15 MG/ML Vial IM (08:35)
[2021-07-31] MEDS: Orphenadrine 60 MG/2 ML Ampul IM (08:36)
== END 2021-07-31 08:58 | disposition home or self-care (01) ==
PROVIDERS: Emergency Provider Student in an Organized Health Care Education/Training Program; PCP Family Medicine
DX: M54.50 Low back pain, unspecified (principal); G89.29 Other chronic pain; Z87.891 Personal history of nicotine dependence; Z90.49 Acquired absence of other specified parts of digestive tract; Z90.710 Acquired absence of both cervix and uterus; K21.9 Gastro-esophageal reflux disease without esophagitis; M06.9 Rheumatoid arthritis, unspecified; Z79.52 Long term (current) use of systemic steroids
CPT/HCPCS: 96372; 99283

== ENCOUNTER 2021-08-05 11:51 | Emergency (ER) | payer OTHER, SELFPAY ==
[2021-08-05 11:52] VITALS: BP 146/94; PULSE 128; RESP 18; TEMP 36.8; O2SAT 97; BMI 27.1
--- NOTE | 2021-08-05 12:11 | EDS_ITS ---
HPI History of Present Illness Chief Complaint: Lower Extremity Injury Narrative Narrative: Patient presents with low back pain radiating to her right leg for the past month. The pain has gotten worse in the past week she has seen the ED, she has seen a chiropractor and has an appointment on Monday with the back specialist. She has no fever or chills. She has no urinary retention symptoms no bowel compromise no saddle anesthesia. No other injuries. [facility] Medical History Acid reflux Chronic back pain Heart murmur Hemorrhoids Rheumatoid arthritis Tobacco abuse Home Medications multivitamin 1 tab PO QDAY 02/08/18 [History Last Taken 03/05/19] omeprazole 20 mg capsule,delayed release 20 mg PO QDAY 02/08/18 [History Last Taken 03/05/19] cholecalciferol (vitamin D3) 3,000 units PO DAILY 11/30/18 [History Last Taken 03/05/19] atorvastatin 20 mg PO DAILY 07/05/21 [History Last Taken Unknown] cyclobenzaprine 10 mg PO TID PRN #20 tablet 07/31/21 [Rx Last Taken Unknown] estradiol 1 mg PO DAILY 07/31/21 [History Last Taken Unknown] prednisone 50 mg PO DAILY 5 Days #25 tab 07/31/21 [Rx Last Taken Unknown] gabapentin 300 mg PO TID #60 cap 08/05/21 [Rx Last Taken Unknown] Allergy/AdvReac Type Severity Reaction Status Date / Time No Known Allergies Allergy Verified 08/05/21 11:52 Family History Father Arthritis Diabetes Heart disease Hypertension Cancer Skin cancer Thyroid disorder Thyroid cancer CAD (coronary artery disease) Mother Arthritis Diabetes Brother Hypertension CVA (cerebral vascular accident) Surgical History History of cholecystectomy History of hysterectomy History of tonsillectomy Social History Smoking Status: Former smoker second hand exposure: Yes alcohol intake: never substance use type: does not use caffeine: Yes what type of physical activity do you participate in: none frequency: does not exercise seatbelt use: always ROS ROS ED ROS Narrative Past medical history: Reviewed Medications: Reviewed Social history: Noncontributory Review of systems: All systems negative except as indicated General: No fever Neck: No neck pain Cardiovascular: No chest pain Respiratory: No shortness of breath or cough Gastrointestinal: No suprapubic pain Genitourinary: No dysuria, no retention symptoms Musculoskeletal: Radiation of the back pain to her right leg. Skin: No rash Neurological: No memory loss, confusion or any focal weakness Psych: No recent behavioral changes Hematologic: No easy bleeding or easy bruising EXAM Physical Exam Narrative Exam Narrative: Vitals reviewed General: Patient appears in some discomfort HEENT: Moist mucous membranes Neck: Nontender Cardiovascular normal heart rate Respiratory: No respiratory difficulty speaking in full sentences Abdomen: Soft and nontender, there is no suprapubic mass or pain Back: There is some tenderness over the lumbar region, pain is spinal and paraspinal both. Extremities: Moves all extremities without joint pain or signs of trauma Neurological: There is normal plantar flexion and dorsiflexion of both feet and great toes. Patellar and Achilles reflexes are normal. Normal strength and sensation. She has a positive straight leg test on the right. Skin: No rash Psychiatric: Slightly anxious. Const Vital Signs: 08/05/21 11:52 Temperature 98.3 F Temperature Source Temporal Pulse Rate 128 H Respiratory Rate 18 Blood Pressure 146/94 H Blood Pressure Mean 111 Pulse Ox 97 Oxygen Delivery Method Room Air MDM MDM MDM Narrative Medical decision making narrative: Patient has sciatica, she has been on steroids I don't believe she would benefit from steroids. I give her analgesia in the ED and I'll add gabapentin for a brief period of time since she does have radicular symptoms. Discharge Plan Triage Chief Complaint: Lower Extremity Injury ED Provider: Jude Coyne Dx/Rx/DC Orders Clinical Impression: Sciatica Instructions: ED Sciatica Prescriptions: New gabapentin 300 mg capsule 300 mg PO TID Qty: 60 RF: 0 No Action omeprazole 20 mg capsule,delayed release(DR/EC) 20 mg PO QDAY RF: 0 multivitamin tablet 1 tab PO QDAY RF: 0 cholecalciferol (vitamin D3) 50,000 UNIT capsule 3,000 units PO DAILY RF: 0 atorvastatin 20 mg tablet 20 mg PO DAILY RF: 0 estradiol 1 mg tablet 1 mg PO DAILY RF: 0 prednisone 10 mg tablet 50 mg PO DAILY 5 Days Qty: 25 RF: 0 cyclobenzaprine 10 mg tablet 10 mg PO TID PRN (Reason: Muscle Spasm) Qty: 20 RF: 0 Primary Care Provider: Mik Hung Referrals: Mik Hung MD [Primary Care Provider] - 3-5 Days Disposition Disposition: Home, Self Care
[2021-08-05] MEDS: oxyCODONE 5 MG Tablet PO (12:15)
== END 2021-08-05 12:21 | disposition home or self-care (01) ==
LOC: ED 12:16
PROVIDERS: Emergency Provider Emergency Medicine; PCP Family Medicine
DX: M54.40 Lumbago with sciatica, unspecified side (principal); M06.9 Rheumatoid arthritis, unspecified; K21.9 Gastro-esophageal reflux disease without esophagitis; Z87.891 Personal history of nicotine dependence; G89.29 Other chronic pain; Z79.52 Long term (current) use of systemic steroids
CPT/HCPCS: 99281; 99283

== ENCOUNTER → 2025-08-28 | Outpatient (CLI) | payer BC, OTHER, SELFPAY ==
--- NOTE | 2025-08-28 13:30 | CT_ITS ---
PROCEDURE: SINUS/FACIAL BONE 08/28/2025 REASON FOR EXAM: CHRONIC SINUSITIS TECHNIQUE: Procedure Code: CTSI Modality: CT Procedure: SINUS/FACIAL BONE Coronal and Sagittal reconstruction series were provided. One or more dose reduction techniques were used (e.g., Automated exposure control, adjustment of the mA and/or kV according to patient size, use of iterative reconstruction technique). RADIATION DOSE SUMMARY: CTDlvol: 33.06 mGy DLP: 846.25 mGycm COMPARISON: None FINDINGS: FRONTAL SINUSES: Normal aeration, without mucosal inflammatory disease. ETHMOIDAL SINUSES: Normal aeration, without mucosal inflammatory disease. MAXILLARY SINUSES: Normal aeration, without mucosal inflammatory disease. SPHENOIDAL SINUSES: Normal aeration, without mucosal inflammatory disease. There is patency of the bilateral maxillary infundibuli with normal uncinate processes, ethmoid bullae, and hiatus semilunaris. Normal bilateral middle turbinates. Normal bilateral inferior turbinates. Mild right side deviation of the nasal septum. There is patency of the bilateral nasal airways. The visualized osseous structures are normal. The visualized bilateral orbital contents are normal. CT/Sinus/Facial Bone IMPRESSION: No evdience of sinusitis. Mild right side deviation of the nasal septum. Reading Location: [facility]
== END | disposition home or self-care (01) ==
LOC: CT 13:20
PROVIDERS: PCP Family Medicine; Referring Provider Otolaryngology; Visit Provider Otolaryngology
DX: J32.9 Chronic sinusitis, unspecified (principal)
CPT/HCPCS: 70486